=== PATIENT | female | born 1965 | race Caucasian/White ===

== ENCOUNTER 2016-06-13 17:08 | Inpatient (IN) | payer MEDICARE, MEDICAID ==
[~2016-06-13] VITALS: Ht 165.1 cm; Wt 81.3 kg
[~2016-06-13 17:08] MED LIST: CRAN1CAP5 PO; LISI-571 PO; MULT1CAP33 PO; NITR100C PO; OXYB15TA PO; UBID1CAP52 PO
[2016-06-13 18:16] LABS: BASOPHILS % (AUTO) 0.2 % (0-3); EOSINOPHILS % (AUTO) 0 % (0-5); Mean Corpuscular Hemoglobin 29.3 pg (27.0-35.0); NEUTROPHILS % (AUTO) 85.9 % (40-74); Platelet Count 315 bil/L (150-400)
--- NOTE | 2016-06-13 18:16 | ED.REPORT ---
HPI-General Illness Date of Service Jun 13, 2016 ED Provider: Dr. Juanito Mendez MD A 51 year old female with a history of history of MS, neurogenic bladder, left renal atrophy and recurrent UTI's presents to the ED via EMS complaining of a subjective fever that began yesterday. Patient's most recent prior admission was in 09/2015 for acute kidney injury obstructive uropathy, UTI and urosepsis. Today, family reports decreased urination, decreased appetite, weakness, confusion, chills and a change in mental status. She denies one sided weakness , facial droop, abdominal pain, cough , SOB, chest pain, headache, neck immobility or stiffeners. Family states that the color of the patient's urine often fluctuates. Patient's Velez catheter is always present. She reports similar symptoms to her previous admission. Family denies steroid use for MS. Nursing Notes Stated Complaint: FEVER Chief Complaint: General Complaint Nursing Notes Reviewed: Yes Allergies: Coded Allergies: Sulfa (Sulfonamide Antibiotics) (Verified Allergy, Unknown, 06/13/16) Scheduled Cranberry Extract/Vit C (Azo Cranberry Softgel) 1 Each Capsule 1 EACH PO DAILY Dimethyl Fumarate (Tecfidera) 240 Mg Capsule 240 MG PO BID Lisinopril (Lisinopril) 2.5 Mg Tablet 2.5 MG PO DAILY Multivitamin (Multivitamins) 1 Each Capsule 1 EACH PO DAILY Nystatin (Nystatin) 60 Applic/15 Gm Cream 1 APPLIC TOP BID Ubidecarenone/Vit E Acetate (Co Q-10 100 mg Softgel) 1 Each Capsule 1 EACH PO DAILY Scheduled PRN Acetaminophen (Acetaminophen) 325 Mg Capsule 650 MG PO q4 hours PRN PRN For Pain General Time Seen by MD: 18:12 Chief Complaint Fever Hx Obtained From: Patient Arrived By: Ambulance Sudden in Onset?: No Onset Occurred: Yesterday Symptom Duration: Since onset Associated with: Reports: Fever (subjective ), Weakness, Denies: Abdominal pain, Cough, Headache Pertinent Negative: Pt denies other symptoms Recent Healthcare: No recent hospitalization, Recent doctor visit Past Medical History Past Medical History Multiple sclerosis Headaches Recurrent UTI's Neurogenic bladder Left renal atrophy Reports: Urinary tract infection Past Surgical History Left ankle fracture Bladder surgery at age 3, uncertain nature Smoking History Never Smoker Social History Alcohol Use: Denies alcohol use Ambulatory Status Walker Review of Systems Decreased appetite Full Review of Systems Constitutional: Reports: Chills, Fever Respiratory: Denies: Non-productive cough, Shortness of breath Cardiovascular: Denies: Chest pain GI: Denies: Abdominal pain, Nausea, Vomiting Female: Reports: Urination decreased, Denies: Dysuria Musculoskeletal: Denies: Neck pain Neurologic: Denies: Change LOC, Focal weakness, Headache, Weakness Psychiatric: Reports: Change mental status, Confusion Complete sys rev & neg: except as marked. Physical Exam Vital Signs Vital Signs Date Time Temp Pulse Resp B/P Pulse Ox O2 Delivery O2 Flow Rate FiO2 06/13/16 18:17 37.9 116 24 107/58 95 Room Air Initial VS: Reviewed Head / Eyes: Atraumatic, Normocephalic, PERRL Neck: Supple, Non-tender, Full range of motion Extremities: Vascular intact, Neuro intact, No swelling, No tenderness Psychiatric: Mood/affect normal, Behavior normal, Normal thought content General/Constitutional: Awake, Alert ENT: Atraumatic, Airway patent Mouth: Positive: Mucous membranes dry (Dry lips ) Respiratory / Chest: Atraumatic, No respiratory distress Cardiovascular: Heart rate NL, Regular rhythm, Heart sounds NL, No gallop, No murmurs, No rubs, Peripheral circulation NL (Strong distal pulses ) CARDIO: No calf swelling or tenderness Abdomen: Atraumatic, Soft, Non-tender, No distention Skin: Atraumatic, Color NL, Warm, Dry SKIN: No evidence of soft tissue infection No cellulitis or abscess Neurologic: Oriented X3, CN II - XII intact NERUO: Decreased strength (baseline in setting of MS) Resolution Analyst stregnth equal in extremities Interpretation & Diagnostics Lab Results Interpretation Result Diagram: 06/13/164 06/13/161803 Test 06/13/16 18:04 White Blood Count 25.0th/mm3 (3.8-10.1) Red Blood Count 4.58mil/mm3 (3.90-5.20) Hemoglobin 13.4g/dL (12.0-15.6) Hematocrit 40.3% (35.0-46.0) Mean Corpuscular Volume 88.0fL (81-100) Mean Corpuscular Hemoglobin 29.3pg (27.0-35.0) Mean Corpuscular Hemoglobin Concent 33.3% (32.0-37.0) Red Cell Distribution Width 14.2% (12.3-15.4) Platelet Count 315bil/L (150-400) Neutrophils (%) (Auto) 85.9% (40-74) Lymphocytes (%) (Auto) 1.4% (14-46) Monocytes (%) (Auto) 12.0% (4-12) Eosinophils (%) (Auto) 0% (0-5) Basophils (%) (Auto) 0.2% (0-3) Sodium Level 138mEq/L (134-144) Potassium Level 4.7mEq/L (3.5-5.2) Chloride Level 102mEq/L (97-108) Carbon Dioxide Level 22mmol/L (18-29) Blood Urea Nitrogen 28mg/dL (6-24) Creatinine 1.73mg/dL (0.57-1.00) Estimat Glomerular Filtration Rate 44mL/min (>59) Glucose Level 133mg/dL (60-99) Calcium Level 9.7mg/dL (8.5-10.1) Phosphorus Level 2.3mg/dL (2.5-4.9) Magnesium Level 1.8mg/dL (1.6-2.6) Total Bilirubin 1.1mg/dL (0.0-1.2) Aspartate Amino Transf (AST/SGOT) 33U/L (0-50) Alanine Aminotransferase (ALT/SGPT) 38U/L (0-32) Alkaline Phosphatase 118U/L (25-150) Troponin T < 0.010ug/L (0.0-0.011) Total Protein 6.7g/dL (6.4-8.4) Albumin 3.1g/dL (3.4-5.0) Procalcitonin 1.07ng/mL (0.00-0.08) Hold Godwin Top Tube Received (Received) ECG Interpretation ECG Interpretation: Sinus tachycardia Rate 118 bpm Normal axis Normal intervals No acute ST changes No T wave abnormalities no tachy 1800 Time: 20:45 Interpreted by: ED physician X-Ray Chest Interpretation Chest Xray Interpretation: IMPRESSION: 1. Low lung volumes with probable vascular crowding but no definite acute cardiopulmonary disease. Dictated by: Anibal Valle M.D. on 06/13/2016 at 18:59 Interpretation / Wet Read by: Interpret - Radiologist Re-Eval/Medical Decision Med Decision/Clinical Course In summary, the patient is a 51 year old female with a history of history of MS , neurogenic bladder, left renal atrophy and recurrent UTI's/urosepsis who presents to the ED via EMS complaining of a subjective fever that began yesterday, in addition she has had chills/rigors generalized weakness/fatigue and confusion. He is accompanied by family who state that this is similar to her previous presentation prior to diagnosis of urosepsis. Upon arrival she was tachycardic with a heart rate of 120. IV access is obtained, laboratory studies were sent and she was treated with a 30 mL/kg fluid bolus. Laboratory studies notable as below: Leukocytosis 25 (new) Hct 40.3 significantly elevated from prior baseline - 25 BUN 28 - Acute elevated baseline within normal limits Creatinine 1.73 - Improved from baseline K within normal limits No. Electrolyte abnormalities Lactate 1.6 Negative troponin Chart review as below: Most recent urine culture (10/13/15) - no growth 2 sets of cultures (10/16/15) - No growth 1 blood culture (10/13/15) micrococcus - suspect contamination While the patient's previous admission was for urosepsis interestingly no cultures seemed to grow any convincing single organism. That being said, she is tachycardic today with foul-smelling urine and a leukocytosis of 25 (not recently started on any steroids) in association with generalized weakness, altered mental status and foul-smelling urine. Velez catheter was placed and urine has been sent for culture. It will be difficult to interpret given that she has a chronic indwelling Velez. At this time presentation is concerning for sepsis and she meets SIRS criteria. Therefore I have initiated broad- spectrum antibiotics with vancomycin and Zosyn and 2 sets of blood cultures have been obtained. Patient was admitted to the hospitalist service for further workup and management. She was transferred in stable condition. Time of Eval: 19:24 Patient Status: Condition improved Re-Evaluation/Progress Note: Family is informed of patient's results and the current plan to admit. Consultation : Referral / Consult Name: Maykel Irizarry MD Consulted With: Hospitalist Call Returned at: 20:09 Food Service Kitchen Supervisor: Will see patient, Agrees with eval, Agrees with plan, Accepts admit Counseled Regarding: Diagnosis, Lab results, Need for admission Discharge & Departure Primary Impression: Sepsis Sepsis type: sepsis due to unspecified organism Qualified Code: A41.9 - Sepsis, unspecified organism Additional Impressions: Urinary tract infection Urinary tract infection type: site unspecified Hematuria presence: without hematuria Qualified Code: N39.0 - Urinary tract infection, site not specified Multiple sclerosis Neurogenic bladder Chronic indwelling Velez catheter Leukocytosis Leukocytosis type: unspecified Qualified Code: D72.829 - Elevated white blood cell count, unspecified Tachycardia Altered mental status Altered mental status type: unspecified Qualified Code: R41.82 - Altered mental status, unspecified Chronic kidney disease Chronic kidney disease stage: unspecified stage Qualified Code: N18.9 - Chronic kidney disease, unspecified SIRS (systemic inflammatory response syndrome) Disposition: ADMITTED TO HOSPITAL Discharge Condition All VS Reviewed: Yes Condition: Stable Referrals: Laurel Benitez PA-C (PCP) Crit Care Except Billable Proc Time Spent: 105-134 minutes Services Performed: Patient management by me, Time spent at bedside, Reviewing test results, Reviewing imaging, Discussing patient care, Documentation in record, Time with fam/surrogate Scribe Attestation Portions of this note were transcribed by Daniella Solo. I, Dr. Mendez personally performed the history, physical exam and medical decision-making; I reviewed and confirmed the accuracy of the information in the transcribed note. Signed by: Martita Carias, 06/13/162049. copies to: Laurel Benitez PA-C, Beck O MD Jun 13, 2016 18:16 DANIELLA SOLO Jun 13, 2016 19:15
[2016-06-13 18:17] VITALS: BP 107/58; PULSE 116; RESP 24; O2SAT 95
[2016-06-13] MEDS ORDERED: 0.9% Sodium Chloride 1,000 ML IV SCH ×2 (18:20→21:08)
[2016-06-13 18:49] LABS: TROPONIN T < 0.010 ug/L (0.0-0.011)
[2016-06-13 18:51] LABS: Magnesium 1.8 mg/dL (1.6-2.6)
--- NOTE | 2016-06-13 19:06 | DRSVH ---
PROCEDURE: X-RAY CHEST ONE VIEW, PORTABLE ([id number]) INDICATIONS: tachycardia TECHNIQUE: One view of the chest was acquired. COMPARISON: Located Within [facility], CR, XR CHEST 1VW (PORTABLE), 10/13/2015, 16:58. FINDINGS: Surgical changes and devices: None. Lungs and pleura: No pleural effusions or pneumothorax. There are low lung volumes with vascular pr ominence which may reflect vascular crowding. No definite focal consolidation. Mediastinum: Mediastinal contours appear mildly prominent likely due to technique and low volumes. Heart size is normal. Bones and chest wall: No suspicious bony lesions. Overlying soft tissues appear unremarkable. IMPRESSION: 1. Low lung volumes with probable vascular crowding but no definite acute cardiopulmonary disease. Dictated by: Anibal Valle M.D. on 06/13/2016 at 18:59 Approved by: Anibal Valle M.D. on 06/13/2016 at 19:00
[2016-06-13] MEDS ORDERED: Alum-Mag Hydrox-Simeth 30 mL Suspension PO PRN ×2 (19:25→21:10)
[2016-06-13] MEDS ORDERED: Piperacillin-Tazo 3.375 Gm Inj 3.375 GM in Dextrose 5% Minibag Plus 50 ML IV ONE (19:25)
[2016-06-13] MEDS ORDERED: Ondansetron 2 mg/mL 2 mL Inj IVPUSH PRN ×2 (19:25→21:10)
[2016-06-13] MEDS ORDERED: Vancomycin Dose per Pharmacist XX ONE ×2 (19:25→21:10)
[2016-06-13 20:00] VITALS: BP 119/67; PULSE 127; RESP 25; O2SAT 94
[2016-06-13] MEDS ORDERED: Vancomycin Inj 1,500 MG in 0.9% Sodium Chloride 500 ML IV ONE (20:00)
[2016-06-13 20:48] VITALS: PULSE 126
[2016-06-13] MEDS ORDERED: MYCC TOP (20:56)
[2016-06-13] MEDS ORDERED: ACET325C PO (20:56)
[2016-06-13] MEDS ORDERED: LISI2.5T PO (20:56)
[2016-06-13] MEDS ORDERED: DIME240C2 PO (20:56)
[2016-06-13 21:09] VITALS: BP 120/69; PULSE 125; RESP 18; O2SAT 96
[2016-06-13] MEDS ORDERED: Polyethylene Glycol (PEG) 17 Gm Powder PO PRN (21:10)
[2016-06-13] MEDS ORDERED: Famotidine Inj 20 MG in IV Premix 1 EACH IV SCH (21:30)
--- NOTE | 2016-06-13 21:30 | NUR ---
Admission Pt is able to answer questions. Oriented x 3. Denies pain. reports that the pt came to the hospital due to lethargy and fever. Pt is currently interactive with health care givers and is afebrile. Replaced mccullough catheter that was leaking in large volumes around the 16gauge mccullough that was placed in the ED Very milky urin flowed from the catheter once it was replaced. Pt tolerated procedure. Able to use call light. Oriented to bed and nurse call light. Will cont to monitor
--- NOTE | 2016-06-13 21:31 | PCM.HPMED ---
Subjective Date of Service Jun 13, 2016 Primary Provider: Admitting Physician: Maykel Irizarry MD Primary Care Physician: Laurel Benitez PA-C Attending Physician: Maykel Irizarry MD Chief Complaint: Fever History of Present Illness: Patient is a 51 y.o. F with past medica history of MS, neurogenic bladder with indwelling catheter, left renal atrophy, recurrent UTI with multiple drug resistance. Patient last admitted to hospital September 2015 for SAMANTHA, obstructive uropathy, urosepsis requiring CCU admit, cultures positive for Citrobacter and Enterobacter (resistance to nitrofurantoin) both resistant to Augmentin, cefazolin, cefuroxime. Patient presented to ED this evening with 24 hours history of worsening subjective fever, weakness, chills, decreased appetite. Family reports patient has been more confused, decreased urination, change in urine color, stated that symptoms are similar to prior admission although they feel like they brought patient into the hospital earlier this time before symptoms became worse. Family denies numbness, facial droop, abdominal pain, constipation, pus or blood in urine, use of systemic steroids for MS. Patient denies headache, syncope, chest pain, chest pressure, shortness of breath, discomfort with Velez insertion, neck stiffness, change in vision. In Ed patient given fluids, once dose of Vancomycin dosing per pharmacy, [place]. Review of Systems: Comprehensive review of systems conducted and was negative except for the pertinent positives listed above. Allergies Coded Allergies: Sulfa (Sulfonamide Antibiotics) (Verified Allergy, Unknown, 06/13/16) Home Medications Cranberry Extract/Vit C (Azo Cranberry Softgel) 1 Each Capsule 1 EACH PO DAILY Lisinopril (Lisinopril) 5 Mg Tablet 2.5 MG PO DAILY Multivitamin (Multivitamins) 1 Each Capsule 1 EACH PO DAILY Ubidecarenone/Vit E Acetate (Co Q-10 100 mg Softgel) 1 Each Capsule 1 EACH PO DAILY Tecfidera (Dimethyl fumerate 240 mg cap) 1 Capsule PO DAILY PMH Multiple sclerosis Headaches Recurrent UTI's Neurogenic bladder Left renal atrophy Urosepsis Surgical History Left ankle fracture Bladder surgery at age 3, uncertain nature Family History HTN no family history of cardiac disease, pulmonary disease, Social History Hx Alcohol Use: No Hx Substance Use: No Hx Tobacco Use: No Smoking Status: Never Smoker Exam Vital Signs Vital Sign - Last Date Time Temp Pulse Resp B/P Pulse Ox O2 Delivery O2 Flow Rate FiO2 06/13/16 21:09 36.8 125 18 120/69 96 Room Air Exam General: Alert, Oriented to person, place, limited to time unable to identify year, Cooperative, No Acute Distress Head: Normocephalic, atraumatic. External ears normal. Eyes: PERRLA, EOMI. Anicteric sclerae. Mouth: Mouth Normal, Mucous Membranes Dry/[place] Neck: Neck supple with full range of motion. No JVD, skin tenting present Chest & Lungs: Clear to auscultation bilaterally with no crackles, wheezes, or rhonchi. Decreased air movement at bases Cardiovascular: Tachycardic/normal sinus rhythm, Normal S1, Normal S2, No Murmurs/Rubs/Gallops Abdomen: Non-tender, Non-distended, No masses, Normoactive bowel tones, Soft Musculoskeletal: Limited Range of Motion at base line, patient able to hold arms and legs against gravity weakness when force applied, weakness of trunk patient needs support to sit up in bed, No CVA tenderness Extremities: No cyanosis/clubbing/edema bilaterally Neurological: Grossly Neurologically Intact, slurred speech at baseline, Strength Normal 3/4 ext, Ambulates with walker at home, Sensation Intact, Cerebellar Function abnormal Finger-Nose but at baseline, appropriately follows commands Psych: Normal mood and affect Lab and Diagnostics Result Diagram: 06/13/16 1804 06/13/16 180 X-Rays, CTs and MRIs CHEST X-RAY IMPRESSION: 1. Low lung volumes with probable vascular crowding but no definite acute cardiopulmonary disease. Dictated by: Anibal Valle M.D. on 06/13/2016 at 18:59 Approved by: Anibal Valle M.D. on 06/13/2016 at 19:00 12-lead ECG Rate 118 Sinus tachycardia normal axis no signs of ST changes Assessment & Plan Patient is a 51 y.o. F with past medica history of MS, neurogenic bladder with indwelling catheter, left renal atrophy, recurrent UTI with multiple drug resistance. Patient last admitted to hospital September 2015 for SAMANTHA, obstructive uropathy, urosepsis requiring CCU admit, urine cultures positive for Citrobacter and Enterobacter (resistance to nitrofurantoin) both resistant to Augmentin, cefazolin, cefuroxime. Patient admitted to hospital for treatment of sepsis, likely source of infection urinary from indwelling catheter. 1. Sepsis, acute - Patient tachycardic on admission, RR 24, BP 107/58 - Likely source of infection urinary tract from indwelling catheter - Continue IVF NS @ 125 mls/hr - Continue Zosyn renal dosing per pharmacy for 7 days - Continue Vancomycin dosing per pharmacy for 7 days - Continue to monitor renal function estimated creatine clearance at admission > 40 - Repeat CBC and CMP - UA with culture ordered - Blood cultures ordered, pending - Procalcitonin ordered, pending - Trend Lactic Acid Q2 hrs until normal. - Continue Tele - Velez cath in place - Continue to monitor I/O - Consider ID consult should patient's condition worsen and pending results of urine and blood cultures 2.Suspected UTI - from indwelling catheter - continue treatment as above #1 3.Acute on chronic kidney disease - Cr at admission 1.73 improved from baseline - Continue to monitor - Repeat BMP in AM - Consider nephrology consult if patient renal function worsens below baseline 4.Dehydration, acute - Continue fluid resuscitation as above #1 4. Hypotension, mild, acute - Continue fluid resuscitation as above #1 - Improving with fluids Chronic Conditions 5. Obstructive uropathy, chronic - Continue treatment as above #1 6. MS - Patient on treatment with Tecfidera 240 mg daily, Hold medication until infection resolved - This medication has been shown to leukocytopenia and decrease body's ability to properly mount immunologic response to fight off severe infection - Consider Neurology consult 7. HTN - Hold Home meds until BP improves CODE STATUS: LIMITED INTERVENTIONS NO INTUBATION, NO MECHANICAL VENTILATION DVT prophylaxis: Sub Q heparin Patient is admitted under inpatient status with expected length of stay greater than 2 midnights due to severity of presenting symptoms, risk of adverse event, and complexity of treatment plan. Pain Evaluation: Adequate Pain Control Resuscitation Status: Limited Interventions (No intubation, No mechanical ventilation) Attending Statement The patient was seen and examined together with Dr. Doe on 06/13 and I agree with the history, exam and plan as outlined in the note above. TERESO DOE DO Jun 13, 2016 21:31 Maykel Irizarry MD Jun 14, 2016 00:42
--- NOTE | 2016-06-13 21:37 | PCM.CONPHA ---
Subjective Date of Service: Jun 13, 2016 Reason for Pharmacy Consult: Vancomycin Dosing Objective Vital Signs Date Time Temp Pulse Resp B/P Pulse Ox O2 Delivery O2 Flow Rate FiO2 06/13/16 21:09 36.8 125 18 120/69 96 Room Air 06/13/16 20:48 126 06/13/16 20:00 36.7 127 25 119/67 94 Room Air 06/13/16 18:17 37.9 116 24 107/58 95 Room Air Weight (Kilograms): 82.800 Height (Feet): 5 Height (Inches): 5.00 Test 06/13/16 18:04 White Blood Count 25.0th/mm3 (3.8-10.1) Red Blood Count 4.58mil/mm3 (3.90-5.20) Hemoglobin 13.4g/dL (12.0-15.6) Hematocrit 40.3% (35.0-46.0) Mean Corpuscular Volume 88.0fL (81-100) Mean Corpuscular Hemoglobin 29.3pg (27.0-35.0) Mean Corpuscular Hemoglobin Concent 33.3% (32.0-37.0) Red Cell Distribution Width 14.2% (12.3-15.4) Platelet Count 315bil/L (150-400) Neutrophils (%) (Auto) 85.9% (40-74) Lymphocytes (%) (Auto) 1.4% (14-46) Monocytes (%) (Auto) 12.0% (4-12) Eosinophils (%) (Auto) 0% (0-5) Basophils (%) (Auto) 0.2% (0-3) Sodium Level 138mEq/L (134-144) Potassium Level 4.7mEq/L (3.5-5.2) Chloride Level 102mEq/L (97-108) Carbon Dioxide Level 22mmol/L (18-29) Blood Urea Nitrogen 28mg/dL (6-24) Creatinine 1.73mg/dL (0.57-1.00) Estimat Glomerular Filtration Rate 44mL/min (>59) Glucose Level 133mg/dL (60-99) Lactic Acid Level 1.6mmol/L (0.4-2.0) Calcium Level 9.7mg/dL (8.5-10.1) Magnesium Level 1.8mg/dL (1.6-2.6) Total Bilirubin 1.1mg/dL (0.0-1.2) Aspartate Amino Transf (AST/SGOT) 33U/L (0-50) Alanine Aminotransferase (ALT/SGPT) 38U/L (0-32) Alkaline Phosphatase 118U/L (25-150) Troponin T < 0.010ug/L (0.0-0.011) Total Protein 6.7g/dL (6.4-8.4) Albumin 3.1g/dL (3.4-5.0) Hold Godwin Top Tube Received (Received) Assessment/Plan Assessment/Plan Vanco per Rx Indication: Urosepsis ? WBC 25 Febrile Vd 53.6; LD 1500mg then 1000mg q24h Trough Goal 15 -20; eTrough @ SS is 16.6 Will draw early trough, before 3rd dose, due to renal (Hx CKD) Adebayo Campa PharmD Jun 13, 2016 21:37
[2016-06-13 21:51] LABS: Phosphorus 2.3 mg/dL (2.5-4.9)
[2016-06-13] MEDS ORDERED: oxyCODONE-Acetamin 5-325 mg Tablet PO PRN (22:05)
[2016-06-13] MEDS: Heparin 5,000 Unit/mL Inj SUBQ SCH (22:06)
[2016-06-13] MEDS: 0.9% Sodium Chloride 1,000 ML IV SCH (22:06)
[2016-06-13 22:27] LABS: INR 1.06 ratio
[2016-06-13 23:55] VITALS: BP 113/61; PULSE 124; RESP 16; O2SAT 95
[2016-06-14] VITALS (7 sets, daily range): BP systolic 116–124; BP diastolic 67–78; PULSE 96–124; RESP 16–20; O2SAT 94–97
[2016-06-14 00:12] LABS: BASOPHILS % (AUTO) 0.1 % (0-3); EOSINOPHILS % (AUTO) 0.1 % (0-5); MONOCYTES % (AUTO) 11.7 % (4-12); Mean Corpuscular Hemoglobin 28.9 pg (27.0-35.0); Mean Corpuscular Volume 88.9 fL (81-100); NEUTROPHILS % (AUTO) 85.4 % (40-74); Platelet Count 247 bil/L (150-400)
[2016-06-14 00:26] LABS: APPEARANCE,URINE CLOUDY (CLEAR,HAZY); COLOR,URINE STRAW (YELLOW); OCCULT BLOOD,URINE LARGE (NEGATIVE); PH,URINE 7.5 (5.0-8.0); UROBILINOGEN,URINE NORMAL (NORMAL)
[2016-06-14] MEDS: Sodium Chloride LOK Flush 10 mL Syringe IVFLUSH SCH ×3 (00:30→16:30)
[2016-06-14 02:32] LABS: BASOPHILS % (AUTO) 0.2 % (0-3); EOSINOPHILS % (AUTO) 0.1 % (0-5); MONOCYTES % (AUTO) 10.2 % (4-12); Mean Corpuscular Hemoglobin 29.1 pg (27.0-35.0); Mean Corpuscular Volume 89.1 fL (81-100); NEUTROPHILS % (AUTO) 85.7 % (40-74); Platelet Count 241 bil/L (150-400)
[2016-06-14] MEDS: Piperacillin-Tazo 3.375 Gm Inj 3.375 GM in Dextrose 5% Minibag Plus 50 ML IV SCH ×3 (04:43→20:52)
[2016-06-14] MEDS: 0.9% Sodium Chloride 1,000 ML IV SCH ×3 (04:47→20:58)
[2016-06-14] MEDS: Heparin 5,000 Unit/mL Inj SUBQ SCH ×3 (06:06→21:00)
[2016-06-14] MEDS ORDERED: Vancomycin Dose per Pharmacist XX SCH (08:30)
--- NOTE | 2016-06-14 14:55 | NUR ---
Case Management Note: received VM from Megan Guzman at [facility],- pt lives at home with spouse, has a caregiver with 112 hours/mo. Pt has hx with [facility] out of [place] and was happy with their services. Faxed H&P to Megan Guzman. Advised SENSITOMETRIST.
--- NOTE | 2016-06-14 16:25 | NUR ---
Evaluation completed. Please go to "Notes" then click on "Assessments and Notes" (bottom left corner of screen). Then select appropriate discipline tab on top of screen.
--- NOTE | 2016-06-14 16:27 | NUR ---
Social Work Note: Initial Assessment Data& Assessment: EMR reviewed. SW met with pt and pt at bedside to discuss discharge planning, SW role explained. Sho Veliz is a 51 year old female admitted on 06/13/2016 for sepsis. Pt has [employer] and [employer] Supplement insurance coverage. Pt sees Laurel LE for primary care. Pt lives at home in [place] with her spouse and uses a wheelchair at baseline. Pt has Chronic MS that has limited her ability to complete ADL's independently. Pt does not drive. Pt has 112 [facility] caregiving hours monthly. [facility] CM is Megan Logan (clinicals have been faxed). Pt has had a hx with [facility] in [place]. Pt has been to [facility] in the last month prior to returning home. Pt does not have LTC insurance or VA benefits. Pt and pt have been provided with DPOA/Advance Directive paperwork and plan to review those documents during this hospitalization. Pt and pt deny any other needs at this time. SW to continue to follow if any needs arise. Plan: Anticipated discharge home when medically ready with resume [facility] caregiving. SW to continue to follow and r/o home health vs. SNF. Pt and pt deny any other needs at this time. SW to continue to follow if any needs arise. YOVANI Diaz Addendum: 06/14/16 at 1632 by MARK ANTHONY GALLAGHER Amended: Links added.
--- NOTE | 2016-06-14 18:30 | NUR ---
Sepsis- Patient has had low grade temp. throughout this shift. No chills. Tele-sinus tach. 100-120's. BP stable. Velez catheter draining cloudy urine. Patient alert and oriented. Denies complaints of discomfort. Turning and repositioning patient about every 2 hrs. Family at bedside and very supportive to patient.
--- NOTE | 2016-06-14 20:49 | PCM.PNMED ---
Subjective Date of Service Jun 14, 2016 Subjective Overnight: No acute events since admission Today: Patient states that she feels fine. No fever or chills overnight. Patient has an indwelling Velez catheter for MS with neurogenic bladder. Patient states she is able to eat without issue but noticed some difficulty with swallowing thin liquids. The patient is unable to make it to the bathroom on time without assistance from a caregiver or family member. Exam Vital Signs Vital Sign - Last Date Time Temp Pulse Resp B/P Pulse Ox O2 Delivery O2 Flow Rate FiO2 06/14/16 05:10 36.7 124 16 116/67 96 Room Air Intake and Output 06/13/16 06/13/16 06/14/16 Cumulative From/Thru 15:00 23:00 07:00 06/13/16 17:09 - 06/14/16 06:35 Intake Total 3000 ml 1586 ml 4586 ml Output Total 2150 ml 2150 ml Balance 3000 ml -564 ml 2436 ml Intake Oral 250 ml 250 ml IV Total 3000 ml 1336 ml 4336 ml Output Urine Total 2150 ml 2150 ml # Voids 1 1 # Bowel Movements 0 0 Exam General: Alert, Oriented to person, place, limited to time unable to identify year but knows Haim Subramanian is the president, Cooperative, No Acute Distress Head: Normocephalic, atraumatic. External ears normal. Eyes: PERRLA, EOMI. Anicteric sclerae. Mouth: Mouth Normal, Mucous Membranes moist Neck: Neck supple with full range of motion. No JVD, skin tenting present Chest & Lungs: Clear to auscultation bilaterally with no crackles, wheezes, or rhonchi. Decreased air movement at bases Cardiovascular: Tachycardic with regular rhythm, Normal S1, Normal S2, No Murmurs/Rubs/Gallops Abdomen: Non-tender, Non-distended, No masses, Normoactive bowel tones, Soft Musculoskeletal: Limited Range of Motion at base line, patient able to move arms and legs but generalized weakness most notably in the lower extremities, No CVA tenderness Extremities: No cyanosis/clubbing/edema bilaterally Neurological: Grossly Neurologically Intact, slurred speech at baseline, Ambulates with walker at home, appropriately follows commands Psych: Normal mood and elevated but not labile affect Lab and Diagnostics Result Diagram: 3/22/17 0220 3/22/17 0220 X-Rays, CTs and MRIs CHEST X-RAY IMPRESSION: 1. Low lung volumes with probable vascular crowding but no definite acute cardiopulmonary disease. Dictated by: Anibal Valle M.D. on 06/13/2016 at 18:59 Approved by: Anibal Valle M.D. on 06/13/2016 at 19:00 12-lead ECG Rate 118 Sinus tachycardia normal axis no signs of ST changes Assessment & Plan Patient is a 51 y.o. F with past medica history of MS, neurogenic bladder with indwelling catheter, left renal atrophy, recurrent UTI with multiple drug resistance. Patient admitted to hospital for treatment of sepsis, likely source of infection urinary from indwelling catheter. Hospital Day 1 1. Sepsis, acute, present on admission - Surgical criteria met with Patient tachycardic and tachypneic on admission HR 116, RR 24, leukocytosis 25,000 - Likely source of infection urinary tract from indwelling catheter secondary to neurogenic bladder due to multiple sclerosis - Patient last admitted to hospital September 2015 for SAMANTHA, obstructive uropathy neurogenic bladder and urinary tract infection requiring CCU admit, urine cultures positive for Citrobacter and Enterobacter (resistance to nitrofurantoin ) both resistant to Augmentin, cefazolin, cefuroxime. - Continue IVF NS @ 125 mls/hr - Continue Zosyn renal dosing per pharmacy for 7 days - discontinue Vancomycin given UTI with prior culture results noted above - Continue to monitor renal function estimated creatine clearance at admission > 40 - UA with culture ordered and pending - Blood cultures ordered, pending - Procalcitonin 1.07 at admission and trended down - Lactic acid 1.6 at admission and trended - Continue Tele - Velez cath in place replaced by EGD - Continue to monitor I/O - Consider ID consult should patient's condition worsen and pending results of urine and blood cultures 2.urinary tract infection, acute, present on admission - from indwelling catheter which was replaced in the ED - continue treatment as above #1 3.Acute on chronic kidney disease, present on admission - Cr at admission 1.73 improved from baseline - Continue to monitor - Repeat BMP in AM - Consider nephrology consult if patient renal function worsens below baseline 4.Dehydration, acute, present on admission - Continue fluid resuscitation as above #1 5. Hypotension, mild, acute, present on admission - Continue fluid resuscitation as above #1 - Improving with fluids 6. Neurogenic bladder, chronic, present on admission - Likely secondary to multiple sclerosis - Continue treatment as above #1 7. Multiple sclerosis, present on admission, chronic - Patient on treatment with Tecfidera 240 mg daily, Hold medication one more day monitoring infection - This medication has been shown to leukocytopenia and decrease body's ability to properly mount immunologic response to fight off severe infection - Consider Neurology consult 8. Hypertension, present on admission, chronic - Hold Home meds until BP improves CODE STATUS: LIMITED INTERVENTIONS NO INTUBATION, NO MECHANICAL VENTILATION DVT prophylaxis: Sub Q heparin Disposition: Patient likely to remain hospitalized for one to 2 more days until culture results come back given prior history of resistant organisms to guarantee monitoring and proper antibiotic selection. Patient has home health nurse already. No further barriers expected to discharge Pain Evaluation: Adequate Pain Control GI Prophylaxis: H2 meet VTE Prophylaxis: Sub-Q Heparin (Unfractionated) Resuscitation Status: Limited Interventions (No intubation, No mechanical ventilation) Limited Interventions: Cardioversion/Defibrillation, BiPAP, Medications and IV Fluid Attending Statement The patient was seen and examined together with Dr. Golden on 06/14/2016 and I agree with the history, exam and plan as outlined in the note above. . Sander Golden DO Jun 14, 2016 07:58 Jamie Sierra MD Jun 16, 2016 19:31
--- NOTE | 2016-06-14 21:25 | NUR ---
Activity Pt had visitors most of the evening. She states, "I'm worn out." Room darkened. Call light within reach. Heels floated. Frequent rounding. Care ongoing
[2016-06-14] MEDS ORDERED: Vancomycin Inj 1,000 MG in IV Premix 1 EACH IV SCH (22:00)
[2016-06-15] VITALS (7 sets, daily range): BP systolic 120–137; BP diastolic 74–94; PULSE 88–108; RESP 18–22; O2SAT 95–97
[2016-06-15] MEDS: Sodium Chloride LOK Flush 10 mL Syringe IVFLUSH SCH ×3 (00:18→15:33)
[2016-06-15 02:44] LABS: BASOPHILS % (AUTO) 0.6 % (0-3); MONOCYTES % (AUTO) 12.4 % (4-12); Mean Corpuscular Volume 90.2 fL (81-100); NEUTROPHILS % (AUTO) 75.8 % (40-74); Platelet Count 196 bil/L (150-400)
[2016-06-15] MEDS: 0.9% Sodium Chloride 1,000 ML IV SCH ×3 (04:19→21:15)
[2016-06-15] MEDS: Piperacillin-Tazo 3.375 Gm Inj 3.375 GM in Dextrose 5% Minibag Plus 50 ML IV SCH ×3 (04:20→21:13)
[2016-06-15] MEDS: Heparin 5,000 Unit/mL Inj SUBQ SCH ×3 (05:33→21:21)
--- NOTE | 2016-06-15 05:40 | NUR ---
Skin Pt turned every two hours. Tolerated. Her right arm is slightly swollen. Elevated on pillows. Heels floated. Will cont to monitor
--- NOTE | 2016-06-15 18:46 | PCM.PNMED ---
Subjective Date of Service Jun 15, 2016 Subjective overnight: No acute events noted overnight Today: Patient states she is feeling good no reports of fever or chills. Her brought in her multiple sclerosis drugs which will be placed in a locked drawer. The would like for the patient to be up in chair. Exam Vital Signs Vital Sign - Last Date Time Temp Pulse Resp B/P Pulse Ox O2 Delivery O2 Flow Rate FiO2 06/15/16 04:21 37.8 101 20 120/74 95 Room Air Intake and Output 06/14/16 06/14/16 06/15/16 Cumulative From/Thru 15:00 23:00 07:00 06/13/16 17:09 - 06/15/16 04:50 Intake Total 560 ml 1463 ml 6609 ml Output Total 2500 ml 1400 ml 6050 ml Balance -1940 ml 63 ml 559 ml Intake Oral 560 ml 200 ml 1010 ml IV Total 1263 ml 5599 ml Output Urine Total 2500 ml 1400 ml 6050 ml # Voids 1 # Bowel Movements 0 0 Exam General: Alert, Oriented and Cooperative, No Acute Distress Head: Normocephalic, atraumatic. External ears normal. Mild hirsutism noted around chin Eyes: PERRLA, EOMI. Anicteric sclerae. Mouth: Mouth Normal, Mucous Membranes moist Neck: Neck supple with full range of motion. No JVD, skin tenting present Chest & Lungs: Clear to auscultation bilaterally with no crackles, wheezes, or rhonchi. Decreased air movement at bases Cardiovascular: Tachycardic with regular rhythm, Normal S1, Normal S2, No Murmurs/Rubs/Gallops Abdomen: Non-tender, Non-distended, No masses, Normoactive bowel tones, Soft Musculoskeletal: Limited Range of Motion at base line, patient able to move arms and legs but generalized weakness most notably in the lower extremities, No CVA tenderness Extremities: No cyanosis/clubbing/edema bilaterally Neurological: Grossly Neurologically Intact, slurred speech at baseline, appropriately follows commands Psych: Normal mood and elevated but not labile affect Lab and Diagnostics Result Diagram: 06/15/1622406/15/16224 X-Rays, CTs and MRIs CHEST X-RAY IMPRESSION: 1. Low lung volumes with probable vascular crowding but no definite acute cardiopulmonary disease. Dictated by: Anibal Valle M.D. on 06/13/2016 at 18:59 Approved by: Anibal Valle M.D. on 06/13/2016 at 19:00 12-lead ECG Rate 118 Sinus tachycardia normal axis no signs of ST changes Assessment & Plan Patient is a 51 y.o. F with past medica history of MS, neurogenic bladder with indwelling catheter, left renal atrophy, recurrent UTI with multiple drug resistance. Patient admitted to hospital for treatment of sepsis, likely source of infection urinary from indwelling catheter. Hospital Day 2 1. Sepsis, acute, present on admission - Surgical criteria met with Patient tachycardic and tachypneic on admission HR 116, RR 24, leukocytosis 25,000 - Likely source of infection urinary tract from indwelling catheter secondary to neurogenic bladder due to multiple sclerosis - Patient last admitted to hospital September 2015 for SAMANTHA, obstructive uropathy neurogenic bladder and urinary tract infection requiring CCU admit, urine cultures positive for Citrobacter and Enterobacter (resistance to nitrofurantoin ) both resistant to Augmentin, cefazolin, cefuroxime. - Continue IVF NS @ 125 mls/hr - Continue Zosyn renal dosing per pharmacy for 7 days - discontinue Vancomycin given UTI with prior culture results noted above - Continue to monitor renal function estimated creatine clearance at admission > 40 - UA with culture ordered and pending - Blood cultures ordered, pending - Procalcitonin 1.07 at admission and trended down - Lactic acid 1.6 at admission and trended - discontinue telemetry - Velez cath in place replaced by EGD - Continue to monitor I/O - ID consulted appreciated recommendations in time 2.urinary tract infection, acute, present on admission - from indwelling catheter which was replaced in the ED - continue treatment as above #1 3.Acute on chronic kidney disease, present on admission - Cr at admission 1.73 improved from baseline - Continue to monitor - Repeat BMP in AM - Consider nephrology consult if patient renal function worsens below baseline 4.Dehydration, acute, present on admission - Continue fluid resuscitation as above #1 5. Hypotension, mild, acute, present on admission - Continue fluid resuscitation as above #1 - Improving with fluids 6. Neurogenic bladder, chronic, present on admission - Likely secondary to multiple sclerosis - Continue treatment as above #1 7. Multiple sclerosis, present on admission, chronic - Patient on treatment with Tecfidera 240 mg daily, Hold medication one more day monitoring infection - This medication has been shown to leukocytopenia and decrease body's ability to properly mount immunologic response to fight off severe infection - Consider Neurology consult 8. Hypertension, present on admission, chronic - Hold Home meds until BP improves CODE STATUS: LIMITED INTERVENTIONS NO INTUBATION, NO MECHANICAL VENTILATION DVT prophylaxis: Sub Q heparin Disposition: Patient likely to remain hospitalized for one more day until culture results come back given prior history of resistant organisms to guarantee monitoring and proper antibiotic selection. Patient has home health nurse already. No further barriers expected to discharge GI Prophylaxis: H2 meet VTE Prophylaxis: Sub-Q Heparin (Unfractionated) Resuscitation Status: Limited Interventions (No intubation, No mechanical ventilation) Limited Interventions: Cardioversion/Defibrillation, BiPAP, Medications and IV Fluid Attending Statement The patient was seen and examined together with Dr. Golden on 06/15/2016 and I agree with the history, exam and plan as outlined in the note above. . Sander Golden DO Jun 15, 2016 08:06 Jamie Sierra MD Jun 16, 2016 19:32
[2016-06-15] MEDS: DIMETHYL FUMARATE 240 MG PO SCH (21:13)
[2016-06-15] MEDS ORDERED: Vancomycin Serum Trough XX ONE (21:30)
--- NOTE | 2016-06-16 00:09 | CONS ---
[address] [address] CONSULTATION REPORT PATIENT: BENJIE KAUFMAN : 1965 MR#: [id number] ADMIT: 06/13/2016 JOB ID: [id number] DATE OF SERVICE: 06/15/2016 REASON FOR FOLLOWUP: Polymicrobial urinary tract infection. I thank Dr. Sierra for this timely consult. HISTORY OF PRESENT ILLNESS: The patient is a most unfortunate 51-year-old woman with a 12 year history of multiple sclerosis which has reduced her mobility greatly and left her with a neurogenic bladder. She has an indwelling Velez with left renal atrophy and a history of multiple recurrent urinary tract infections. She has her Velez changed once a month, and two weeks ago was her most recent change. Unfortunately, after that change, there was leaking and she developed a candidal intertrigo in her groin, and for that reason, she was seen in urgent care and the Velez was again replaced. She then did okay until about three days prior to admission when she developed altered mental status with encephalopathy, hypersomnolence, confusion and chills. These symptoms led her family to bring her to the hospital, where she was admitted two days ago with possible sepsis. She was started empirically on broad-spectrum antibiotics which include Zosyn. She was started on vanco and Zosyn and improved considerably. At this point, the patient's mental status has basically returned to something close to normal, though she is still quite weak. Ordinarily, she can made it about 10 steps with a walker, but at this point she is still too weak to do that. She remains on Zosyn and on this, the beginning of her third hospital day, ID consultation is requested regarding possible discharge meds. The patient and her were interviewed. The patient reports she is getting back toward normal except for the weakness in her lower extremities, and hopes to get that somewhat better before she goes home. At this point, she no longer has any fevers and chills, she is no longer confused, and she is back to her normal mental status. She has no sore throat. No significant cough. No chest pain or shortness of breath. PAST MEDICAL HISTORY: 1. Multiple sclerosis. 2. Neurogenic bladder. 3. History of recurrent urinary tract infections. 4. Chronic renal insufficiency. 5. Atrophic left kidney. SOCIAL HISTORY: The patient lives at home with her and caregivers. She is a nonsmoker and nondrinker. 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 FAMILY HISTORY: The had tuberculosis in the late 1970s and was treated. That is before they were . The patient herself has no other family history of TB. REVIEW OF SYSTEMS: Was done. The patient reports no ongoing fevers, chills or headaches. She has no sore throat. No significant cough, shortness of breath, chest pain, nausea, vomiting or diarrhea. She has not yet regained her ability to walk. She has a neurogenic bladder and a chronic Velez is in place. She denies having any history of decubitus ulcers. Remainder of the review of systems was negative. PHYSICAL EXAMINATION: Reveals an afebrile woman. She was febrile to 37.9 when she came in. She has been afebrile since, now 37.2, pulse 94, respiratory rate 22, blood pressure 137/94. She is saturating well on room air. She is a propped up with pillows in bed. Her head is without trauma. Eyes without conjunctivitis or scleral icterus. Oral cavity is benign. No pharyngitis is seen. The neck is without obvious adenopathy or JVD. Lungs are reasonably clear. Cardiac tones: Regular rate and rhythm without murmur. Abdomen is soft and nontender without organomegaly or ascites. She has a Velez catheter in place. Her extremities are without evidence of edema or cellulitis. There is no skin breakdown noted on the patient's backside according to the nursing staff, the patient and her . I did not reposition her to examine this part of the body. Heels are without ulceration and the extremities are well perfused. Neurologically, the patient is quite weak in her lower extremities, which is one of the very limiting here, and she has the Velez catheter. LABORATORIES: Include white count 25,000 when she came in two days ago. It is now down to 7000, completely normal. Creatinine 1.15, down from 1.5 when she came in. LFTs normal except ALT 44. Procalcitonin is 0.5, down from 1.07, so it has fallen by half. Urinalysis is packed with white cells, also a large number of red cells seen. The blood cultures are negative. The urine culture is confusing in that at least three different microorganisms are growing. The Internal Medicine team has asked the micro lab to ferret out the three organisms and do susceptibilities. In reviewing her charts, previously the patient has had many outpatient urine cultures positive for Enterobacter, as well as E. coli, which have been by and large susceptible to quinolones. She also was admitted here in 2016 with what sounded like urosepsis, but the urine culture was actually negative, so we do not have any evidence for multi-drug resistant organisms at this point. IMAGING: During this admission includes a chest x-ray which shows low lung volumes but no clear-cut infiltrate. IMPRESSION: This is an unfortunate 51-year-old woman with multiple sclerosis, multiple neurologic deficits including lower extremity weakness and neurogenic bladder. She is admitted with what sounds like a complicated urinary tract infection with sepsis producing encephalopathy and profound leukocytosis. Unfortunately, our blood cultures are negative and our urine cultures are mixed in this patient with a chronic indwelling Velez. In the past, all of her isolates we can find, both in and outpatient, have been susceptible to quinolones. RECOMMENDATIONS: 1. Will continue with Zosyn overnight. 2. We await additional data from micro lab in the morning. 3. Hopefully, will be able to send the patient home with an oral quinolone to finish her therapy, but that will depend on what we get from the micro lab. This case discussed in detail with the patient and her .
[2016-06-16] MEDS: Sodium Chloride LOK Flush 10 mL Syringe IVFLUSH SCH ×3 (00:30→16:30)
[2016-06-16 03:58] LABS: BASOPHILS % (AUTO) 0.9 % (0-3); EOSINOPHILS % (AUTO) 2.5 % (0-5); MONOCYTES % (AUTO) 14.8 % (4-12); Mean Corpuscular Hemoglobin 28.9 pg (27.0-35.0); Mean Corpuscular Volume 89.5 fL (81-100); NEUTROPHILS % (AUTO) 72.7 % (40-74); Platelet Count 206 bil/L (150-400)
[2016-06-16 04:40] VITALS: BP 122/78; PULSE 96; RESP 24; O2SAT 95
[2016-06-16] MEDS: 0.9% Sodium Chloride 1,000 ML IV SCH ×3 (05:28→22:22)
[2016-06-16] MEDS: Piperacillin-Tazo 3.375 Gm Inj 3.375 GM in Dextrose 5% Minibag Plus 50 ML IV SCH ×3 (05:28→22:22)
[2016-06-16] MEDS: Heparin 5,000 Unit/mL Inj SUBQ SCH ×3 (05:45→22:28)
--- NOTE | 2016-06-16 06:36 | NUR ---
No Tele/IV Pt off telemetry, Room air, NS @ 125, Changed IV tubing 0500 06/16/16 A&O x3 weak , moves all extremities, using call light appropriately,
[2016-06-16] MEDS: DIMETHYL FUMARATE 240 MG PO SCH ×2 (09:00→20:11)
[2016-06-16 09:02] VITALS: BP 128/83; PULSE 87; RESP 16; O2SAT 95
[2016-06-16 12:01] VITALS: BP 105/70; PULSE 99; RESP 16; O2SAT 95
--- NOTE | 2016-06-16 12:50 | PROG NOTE ---
[address] [address] PROGRESS NOTE PATIENT: BENJIE KAUFMAN : 1965 MR#: [id number] ADMIT: 06/13/2016 JOB ID: [id number] DATE: 06/16/2016 REASON FOR FOLLOWUP: Complicated urinary tract infection with encephalopathy. INTERVAL HISTORY: Overnight, the patient reports she is improved. She denies fevers, chills, or sweats. She has no pulmonary complaints. She specifically denies abdominal pain. No nausea, vomiting, diarrhea, and she has a good appetite. She still has a Velez catheter in place, as is always the case. She notes she has a bit of a rash on her left arm which she attributes to being laid on her left arm up for sustained period. PHYSICAL EXAMINATION: Reveals a comfortable-appearing woman. She has been afebrile since her admission now almost three days ago. Pulse 87, respiratory rate 16, blood pressure 128/83. She is saturating well on room air. Examination of the oral cavity is unremarkable. Lungs fairly clear bilaterally. Cardiac tones without new murmur. Abdomen is nontender, including completely nontender in the right upper quadrant. She has a Velez catheter in place. She has an erythematous exanthem over her left distal forearm which may in fact have been due to pressure. LABORATORIES: Include a white count which is dropping rapidly from 25,000 four days ago to 6000 today. Basically normal diff at this point. Creatinine is 1.17 and steadily improving. LFTs are actually going the other way. Her AST is now increased to 69. Her ALT is increased to 73, and her alk phos is increased to 254. All of these started off at normal. Her procalcitonin is going the right way, however. It was 1.07 on admission and is now down to 0.2. Micro studies include a mixed urine culture. The urine actually grew three separate isolates, and so the micro lab was not enthusiastic about working it up, but one member the medicine team asked them to, and what they found is two separate species of E. coli and Klebsiella. Susceptibilities will not be available until tomorrow. Last night when we saw this consult, we reviewed the [facility] records and found that she has grown a variety of enteric gram-negative rods from her urine in the past and that all that had been tested in the past were sensitive to quinolones. Note that she is also SULFA allergic. Her chest radiograph done on admission showed no infiltrate. IMPRESSION: This patient was quite ill when she came in with complicated urinary tract infection, encephalopathy, and profound leukocytosis. She is now improved tremendously after four days or so of Zosyn and might reasonably be considered for discharge. The Zosyn is probably overly broad at this point, but we can probably just leave it in place, as she will likely go within the next 24 hours. For home antibiotics, I would consider oral Cipro. If she is sent home tomorrow, the results of the micro studies will be available, and I would just double check to make sure all the organisms are sensitive to quinolones. If on the other hand the plan is to send her home today, I think that is completely reasonable, as it is very likely the organisms would be susceptible. The only other concern I have with this patient is her rising LFTs which do not make a lot of sense. Her LFTs are rising in a cholestatic pattern. I wonder if this could be due to medication. There is little reason to think she has any right upper quadrant structural pathology, as she has no tenderness, a good appetite, and no nausea and vomiting. RECOMMENDATIONS: 1. The patient could be discharged today on oral Cipro to complete a 10-day course, which would mean she would go for six more days. 2. If not sent home today, she could go tomorrow, presumably with oral quinolones, but one would need to check the susceptibilities of the three organisms which are now growing in the micro lab to make sure that Cipro would be a reasonable choice. 3. The patient should have her LFTs rechecked at some point, and then reasonably in near future either as an inpatient or outpatient to make sure they are not continuing to climb. If they are continuing to climb, of course she will need a right upper quadrant ultrasound, but I do not think that is urgent today.
--- NOTE | 2016-06-16 14:07 | NUR ---
Evaluation completed. Please go to "Notes" then click on "Assessments and Notes" (bottom left corner of screen). Then select appropriate discipline tab on top of screen.
[2016-06-16 16:42] VITALS: BP 113/75; PULSE 87; RESP 20; O2SAT 98
--- NOTE | 2016-06-16 17:02 | NUR ---
Activity She has tolerated be turned in bed every 2 hours today. Was able with the help of Physical Therapy to sit at the edge of the bed before receiving a two person assist to lay back down and get situated in bed. Care continues.
--- NOTE | 2016-06-16 18:29 | PCM.PNMED ---
Subjective Date of Service Jun 16, 2016 Subjective overnight: No acute events overnight Today: Patient states that she is doing well today. She has no complaints and denies any fever or chills. The patient states that her will be in the hospital after his work. Exam Vital Signs Vital Sign - Last Date Time Temp Pulse Resp B/P Pulse Ox O2 Delivery O2 Flow Rate FiO2 06/16/16 04:40 36.8 96 24 122/78 95 Room Air Intake and Output 06/15/16 06/15/16 06/16/16 Cumulative From/Thru 15:00 23:00 07:00 06/13/16 17:09 - 06/16/16 06:19 Intake Total 870 ml 3289 ml 57305 ml Output Total 2075 ml 1300 ml 9425 ml Balance -1205 ml 1989 ml 1343 ml Intake Oral 870 ml 200 ml 2080 ml IV Total 3089 ml 8688 ml Output Urine Total 2075 ml 1300 ml 9425 ml # Voids 1 # Bowel Movements 0 0 0 Exam General: Alert, Oriented and Cooperative, No Acute Distress Head: Normocephalic, atraumatic. External ears normal. Mild hirsutism noted around chin Eyes: PERRLA, EOMI. Anicteric sclerae. Mouth: Mouth Normal, Mucous Membranes moist Neck: Neck supple with full range of motion. No JVD, skin tenting present Chest & Lungs: Clear to auscultation bilaterally with no crackles, wheezes, or rhonchi. Decreased air movement at bases Cardiovascular: Tachycardic with regular rhythm, Normal S1, Normal S2, No Murmurs/Rubs/Gallops Abdomen: Non-tender, Non-distended, No masses, Normoactive bowel tones, Soft Musculoskeletal: Limited Range of Motion at base line, patient able to move arms and legs but generalized weakness most notably in the lower extremities, No CVA tenderness Extremities: No cyanosis/clubbing/edema bilaterally Neurological: Grossly Neurologically Intact, slurred speech at baseline, appropriately follows commands Psych: Normal mood and elevated but not labile affect Lab and Diagnostics Result Diagram: 06/16/1634606/16/16346 X-Rays, CTs and MRIs CHEST X-RAY IMPRESSION: 1. Low lung volumes with probable vascular crowding but no definite acute cardiopulmonary disease. Dictated by: Anibal Valle M.D. on 06/13/2016 at 18:59 Approved by: Anibal Valle M.D. on 06/13/2016 at 19:00 12-lead ECG Rate 118 Sinus tachycardia normal axis no signs of ST changes Assessment & Plan Patient is a 51 y.o. F with past medica history of MS, neurogenic bladder with indwelling catheter, left renal atrophy, recurrent UTI with multiple drug resistance. Patient admitted to hospital for treatment of sepsis, likely source of infection urinary from indwelling catheter. Hospital Day 3 1. Sepsis, acute, present on admission - Surgical criteria met with Patient tachycardic and tachypneic on admission HR 116, RR 24, leukocytosis 25,000 - Likely source of infection urinary tract from indwelling catheter secondary to neurogenic bladder due to multiple sclerosis - Patient last admitted to hospital September 2015 for SAMANTHA, obstructive uropathy neurogenic bladder and urinary tract infection requiring CCU admit, urine cultures positive for Citrobacter and Enterobacter (resistance to nitrofurantoin ) both resistant to Augmentin, cefazolin, cefuroxime. - Continue IVF NS @ 125 mls/hr - Continue Zosyn renal dosing per pharmacy for 7 days - discontinue Vancomycin given UTI with prior culture results noted above - Continue to monitor renal function estimated creatine clearance at admission > 40 - UA with culture ordered and pending - Blood cultures ordered, pending - Procalcitonin 1.07 at admission and trended down - Lactic acid 1.6 at admission and trended - discontinue telemetry - Velez cath in place replaced by EGD - Continue to monitor I/O - ID consulted appreciated recommendations in time 2.urinary tract infection, acute, present on admission - from indwelling catheter which was replaced in the ED - continue treatment as above #1 3.Acute on chronic kidney disease, present on admission - Cr at admission 1.73 improved from baseline - Continue to monitor - Repeat CMP in AM 4. Transaminitis, not present on admission, under evaluation - Continue to monitor - Consider right upper quadrant ultrasound if transaminitis persists 5. Hypotension, mild, acute, present on admission - Continue fluid resuscitation as above #1 - Improving with fluids 6. Neurogenic bladder, chronic, present on admission - Likely secondary to multiple sclerosis - Continue treatment as above #1 7. Multiple sclerosis, present on admission, chronic - Patient on treatment with Tecfidera 240 mg daily, Hold medication one more day monitoring infection - This medication has been shown to leukocytopenia and decrease body's ability to properly mount immunologic response to fight off severe infection - Consider Neurology consult 8. Hypertension, present on admission, chronic - Hold Home meds until BP improves 9.Dehydration, acute, present on admission - Continue fluid resuscitation as above #1 CODE STATUS: LIMITED INTERVENTIONS NO INTUBATION, NO MECHANICAL VENTILATION DVT prophylaxis: Sub Q heparin Disposition: Patient likely to remain hospitalized for one more day until culture results come back given prior history of resistant organisms to guarantee monitoring and proper antibiotic selection. Patient has home health nurse already. No further barriers expected to discharge Pain Evaluation: Adequate Pain Control GI Prophylaxis: H2 meet VTE Prophylaxis: Sub-Q Heparin (Unfractionated) Resuscitation Status: Limited Interventions (No intubation, No mechanical ventilation) Limited Interventions: Cardioversion/Defibrillation, BiPAP, Medications and IV Fluid Attending Statement The patient was seen and examined together with Dr. Golden on 06/16/2016 and I agree with the history, exam and plan as outlined in the note above. . Sander Golden DO Jun 16, 2016 07:37 Jamie Sierra MD Jun 18, 2016 18:33
[2016-06-16 20:05] VITALS: BP 123/82; PULSE 88; RESP 16; O2SAT 96
[2016-06-17] MEDS: Sodium Chloride LOK Flush 10 mL Syringe IVFLUSH SCH ×3 (00:30→13:38)
--- NOTE | 2016-06-17 01:15 | NUR ---
Transfer from [facility] RM 2005 to [facility] RM 3014 Pt was transferred in her bed from room 2005 to room 3014 with all pt's belongings and the soft-touch call-light button and a single IV pump at approximately 0115. Pt has NS@125ml/hr and Zosyn@12.5ml/hr running at the time of transfer. Pt on RA with SpO2 >92%. Pt is AOx3, and DAVIS but very weak and still not at baseline. Pt's will be notified of the room change in the AM per pt request.
--- NOTE | 2016-06-17 01:18 | NUR ---
Transfer to [facility] 3014 Pt arrived to room at around 0115. Alert and oriented. Arrived in PCC bed. Abx infusing. No pain currently.
[2016-06-17] MEDS: 0.9% Sodium Chloride 1,000 ML IV SCH ×3 (05:50→20:23)
[2016-06-17] MEDS: Piperacillin-Tazo 3.375 Gm Inj 3.375 GM in Dextrose 5% Minibag Plus 50 ML IV SCH ×3 (05:51→20:23)
[2016-06-17] MEDS: Heparin 5,000 Unit/mL Inj SUBQ SCH ×3 (05:55→20:24)
[2016-06-17 06:38] LABS: BASOPHILS % (AUTO) 1.3 % (0-3); MONOCYTES % (AUTO) 15.6 % (4-12); Mean Corpuscular Hemoglobin 28.6 pg (27.0-35.0); NEUTROPHILS % (AUTO) 66.4 % (40-74); Platelet Count 256 bil/L (150-400)
--- NOTE | 2016-06-17 06:40 | NUR ---
Attempt to Contact Regarding RM Change Attempted to contact pt's at 0638 this AM per the request of the pt to notify him of the pt's room change from RM 2004 to RM 3014. The home phone rang multiple times with no answer and no way to leave a voice message. Pt's still needs to be contacted and notified of the room change. His name is Valentin and the home number is [phone].
[2016-06-17 06:47] VITALS: BP 124/80; PULSE 83; RESP 16; O2SAT 92
[2016-06-17] MEDS: DIMETHYL FUMARATE 240 MG PO SCH ×2 (08:03→20:24)
--- NOTE | 2016-06-17 09:05 | NUR ---
Verbal consent to sign GEORGIE with pt. YOVANI Rm
--- NOTE | 2016-06-17 10:34 | NUR ---
Social Work-readiness for discharge: Data:EMR reviewed. Pt is on day 4 of hospitalization for sepsis per H&P. Pt is not medically stable anticipate 1-2 more days. PT worked with pt and are recommending SNF. Pt is a 2 person assist and not able to sit at the edge of the bed, pt normally able to independently transfer to w/c. SW met with pt, SW role explained. SW explained PT recommend,SNF choice list provided. Pt is agreeable to a referral to [facility]. SW also explained that pt's insurance will have to authorize SNF placement also. SW provided access in [email or web address] and faxed PASRR and facesheet to facility. SW called pt's Valentin [phone] and [phone] to discuss discharge planning, SW role explained. SW explained that pt's had moved to new floor and provided him with room number. SW explained recommendation for SNF. is hopeful for pt to return home, but is agreeable to referral to [facility]. ZAIN updated MD. Phone number and plan written on white board in room. PASRR and paperwork in the chart. SW will continue to follow. Assessment:Pt who would benefit from SNF. Plan: Referral has been made to [facility]. Insurance authorization will need to be obtained. PASRR and paperwork in the chart. SW will continue to follow. YOVANI Rm
--- NOTE | 2016-06-17 10:38 | NUR ---
SNF choice list provided. YOVANI Rm
[2016-06-17 13:00] VITALS: BP 126/74; PULSE 81; RESP 16; O2SAT 96
--- NOTE | 2016-06-17 17:53 | NUR ---
Activity/BM/family Pt remains on Q2 hour turning schedule to prevent any skin breakdown. She is tolerating this well and compliant. Velez remains patent, draining pale yellow urine. Pt has not had a BM since admission, when this was discussed she mentioned to MD that she "did not feel comfortable" having a BM while here in the hospital. Plan is to facilitate assisting her with a BM this evening when he comes in to visit per pt's request. was updated of pt's room change by social media manager this morning and he was in to visit. Bed in lowest, locked position and call light in reach.
--- NOTE | 2016-06-17 18:25 | PCM.PNMED ---
Subjective Date of Service Jun 17, 2016 Subjective Patient is a 51 y.o. F with past medica history of MS, neurogenic bladder with indwelling catheter, left renal atrophy, recurrent UTI with multiple drug resistance. Patient admitted to hospital for treatment of sepsis, likely source of infection urinary from indwelling catheter. Hospital Day 4 Patient reports feeling well today, she is having no discomfort in the suprapubic area or with her Velez catheter. She is emotional during our discussion but also reasonable. She has not had a bowel movement in multiple days upon further discussion she related that she does not feel comfortable having a BM here. She states that at home her helps her. Need for an attempt when is here next was discussed with patient. She is agreed. Exam Vital Signs Vital Sign - Last Date Time Temp Pulse Resp B/P Pulse Ox O2 Delivery O2 Flow Rate FiO2 06/17/16 06:47 36.8 83 16 124/80 92 Room Air Intake and Output 06/16/16 06/16/16 06/17/16 Cumulative From/Thru 15:00 23:00 07:00 06/13/16 17:09 - 06/17/16 06:47 Intake Total 1918 ml 1627 ml 95389 ml Output Total 2350 ml 2250 ml 10601 ml Balance -432 ml -623 ml 288 ml Intake Oral 540 ml 150 ml 2770 ml IV Total 1378 ml 1477 ml 35045 ml Output Urine Total 2350 ml 2250 ml 91528 ml # Voids 1 # Bowel Movements 0 Exam General: Alert, Oriented and Cooperative, No Acute Distress Head: Normocephalic, atraumatic. External ears normal. Mild hirsutism noted with chin hair Eyes: PERRLA, EOMI. Anicteric sclerae. Mouth: Mouth Normal, Mucous Membranes moist Neck: Neck supple with full range of motion. No JVD Chest & Lungs: Clear to auscultation bilaterally with no crackles, wheezes, or rhonchi. Decreased air movement at bases Cardiovascular: regular rate and rhythm, No Murmurs/Rubs/Gallops Abdomen: Non-tender, Non-distended, No masses, Normoactive bowel tones, Soft Musculoskeletal: Limited Range of Motion at base line, patient able to move arms and legs but generalized weakness most notably in the lower extremities Extremities: No cyanosis/clubbing/edema bilaterally Neurological: Grossly Neurologically Intact, slurred speech at baseline, appropriately follows commands Psych: Normal mood and elevated but not labile affect Lab and Diagnostics Result Diagram: 06/17/1660206/17/16602 X-Rays, CTs and MRIs CHEST X-RAY IMPRESSION: 1. Low lung volumes with probable vascular crowding but no definite acute cardiopulmonary disease. Dictated by: Anibal Valle M.D. on 06/13/2016 at 18:59 Approved by: Anibal Valle M.D. on 06/13/2016 at 19:00 12-lead ECG Rate 118 Sinus tachycardia normal axis no signs of ST changes Assessment & Plan Patient is a 51 y.o. F with past medica history of MS, neurogenic bladder with indwelling catheter, left renal atrophy, recurrent UTI with multiple drug resistance. Patient admitted to hospital for treatment of sepsis, likely source of infection urinary from indwelling catheter. Hospital Day 4 1. Sepsis, acute, present on admission -Sepsis criteria met with Patient tachycardic and tachypneic on admission HR 116 , RR 24, leukocytosis 25,000 - Likely source of infection urinary tract from indwelling catheter secondary to neurogenic bladder due to multiple sclerosis - Patient last admitted to hospital September 2015 for SAMANTHA, obstructive uropathy neurogenic bladder and urinary tract infection requiring CCU admit, urine cultures positive for Citrobacter and Enterobacter (resistance to nitrofurantoin ) both resistant to Augmentin, cefazolin, cefuroxime. - Continue IVF NS @ 125 mls/hr - Continue Zosyn renal dosing per pharmacy for 7 days - Patient can discharge with ciprofloxacin when appropriate for a 10 day course of antibiotics - discontinue Vancomycin given UTI with prior culture results noted above - Continue to monitor renal function estimated creatine clearance at admission > 40 - UA with culture shows Klebsiella pneumoniae and mixed urogenital aline - Blood cultures ordered, pending - Procalcitonin 1.07 at admission and trended down - Lactic acid 1.6 at admission and trended - discontinue telemetry - Velez cath in place replaced by EGD - Continue to monitor I/O - ID consulted appreciated recommendations in time 2.urinary tract infection, acute, present on admission - from indwelling catheter which was replaced in the ED - continue treatment as above #1 3. Acute metabolic encephalopathy due to Klebsiella UTI, present on admission, resolved - Treated as above 4. Acute on chronic kidney disease, present on admission - Cr at admission 1.73 improved from baseline - Continue to monitor - Repeat CMP in AM 5. Transaminitis, not present on admission, under evaluation - Continue to monitor - Consider right upper quadrant ultrasound if transaminitis persists 6. Neurogenic bladder, chronic, present on admission - Likely secondary to multiple sclerosis - Continue treatment as above #1 7. Multiple sclerosis, present on admission, chronic - Patient on treatment with Tecfidera 240 mg daily, Hold medication one more day monitoring infection - This medication has been shown to leukocytopenia and decrease body's ability to properly mount immunologic response to fight off severe infection - Consider Neurology consult 8. Hypertension, present on admission, chronic - Hold Home meds until BP improves 9.Dehydration, acute, present on admission - Continue fluid resuscitation as above #1 10. Hypotension, mild, acute, present on admission, resolved - Continue fluid resuscitation as above #1 - Improving with fluids CODE STATUS: LIMITED INTERVENTIONS NO INTUBATION, NO MECHANICAL VENTILATION DVT prophylaxis: Sub Q heparin Disposition: Patient likely to remain hospitalized until Sunday as physical therapy is recommending long-term and patient's insurance is not available until Sunday. Patient has home health nurse already. No further barriers expected to discharge GI Prophylaxis: H2 meet VTE Prophylaxis: Sub-Q Heparin (Unfractionated) Resuscitation Status: Limited Interventions (No intubation, No mechanical ventilation) Limited Interventions: Cardioversion/Defibrillation, BiPAP, Medications and IV Fluid Attending Statement The patient was seen and examined together with Dr. Lewis on 06/17/2016 and I agree with the history, exam and plan as outlined in the note above. Eli Lewis DO Jun 17, 2016 07:16 Valente Wasserman MD Jun 18, 2016 11:23
[2016-06-17 20:11] VITALS: BP 114/74; PULSE 83; RESP 14; O2SAT 96
[2016-06-18] MEDS: Sodium Chloride LOK Flush 10 mL Syringe IVFLUSH SCH ×3 (00:04→14:12)
[2016-06-18] MEDS: 0.9% Sodium Chloride 1,000 ML IV SCH (04:41)
[2016-06-18] MEDS: Piperacillin-Tazo 3.375 Gm Inj 3.375 GM in Dextrose 5% Minibag Plus 50 ML IV SCH (04:41)
[2016-06-18 04:45] VITALS: BP 132/81; PULSE 83; RESP 16; O2SAT 94
[2016-06-18] MEDS: Heparin 5,000 Unit/mL Inj SUBQ SCH ×3 (04:50→21:31)
[2016-06-18 07:27] LABS: BASOPHILS % (AUTO) 0.9 % (0-3); EOSINOPHILS % (AUTO) 4.2 % (0-5); MONOCYTES % (AUTO) 13.4 % (4-12); Mean Corpuscular Volume 87.3 fL (81-100); NEUTROPHILS % (AUTO) 66.1 % (40-74); Platelet Count 267 bil/L (150-400)
[2016-06-18] MEDS: DIMETHYL FUMARATE 240 MG PO SCH ×2 (08:39→19:41)
--- NOTE | 2016-06-18 11:28 | PCM.PNMED ---
Subjective Date of Service Jun 18, 2016 Subjective Pt has no complaints or concerns at this time. Pt denies any fever, nausea, vomiting, chills, abdominal pain, or jaundice. Exam Vital Signs Vital Sign - Last Date Time Temp Pulse Resp B/P Pulse Ox O2 Delivery O2 Flow Rate FiO2 06/18/16 04:45 37.0 83 16 132/81 94 Room Air Intake and Output 06/17/16 06/17/16 06/18/16 Cumulative From/Thru 15:00 23:00 07:00 06/13/16 17:09 - 06/18/16 06:27 Intake Total 653 ml 1544 ml 200 ml 84632 ml Output Total 2150 ml 1975 ml 57525 ml Balance 653 ml -606 ml -1775 ml -1440 ml Intake Oral 720 ml 200 ml 3690 ml IV Total 653 ml 824 ml 62098 ml Output Urine Total 2150 ml 1975 ml 78607 ml # Voids 1 # Bowel Movements 1 1 Exam GENERAL: NAD, Pt laying in bed comfortably HEENT: AT/NC, PERRLA, EOMI, Mucus Membranes are moist CARDIAC: RRR; No M/R/G PULM: CTAB; No wheezes or rhonchi bilaterally ABD: Soft, Nontender, Nondistended, Positive bowel sounds in all quadrants, No Hepatosplenomegaly appreciated EXT: No C/C/E; No calf tenderness bilaterally SKIN: Warm, Dry, [place], and Intact NEURO: Alert and oriented x3; Following all commands PSYCH: Normal mood and affect IVs and Medications Medications Reviewed: Medications were reviewed in detail Lab and Diagnostics Result Diagram: 06/18/1646 06/18/1646 X-Rays, CTs and MRIs CHEST X-RAY IMPRESSION: 1. Low lung volumes with probable vascular crowding but no definite acute cardiopulmonary disease. Dictated by: Anibal Valle M.D. on 06/13/2016 at 18:59 Approved by: Anibal Valle M.D. on 06/13/2016 at 19:00 12-lead ECG Rate 118 Sinus tachycardia normal axis no signs of ST changes Assessment & Plan Patient is a 51 y.o. F with past medica history of MS, neurogenic bladder with indwelling catheter, left renal atrophy, recurrent UTI with multiple drug resistance. Patient admitted to hospital for treatment of sepsis, likely source of infection urinary from indwelling catheter. Hospital Day 4 1. Sepsis, acute, present on admission - Resolved - Sepsis criteria met with Patient tachycardic and tachypneic on admission HR 116, RR 24, leukocytosis 25,000 - Likely source of infection urinary tract from indwelling catheter secondary to neurogenic bladder due to multiple sclerosis - Patient last admitted to hospital September 2015 for SAMANTHA, obstructive uropathy neurogenic bladder and urinary tract infection requiring CCU admit, urine cultures positive for Citrobacter and Enterobacter (resistance to nitrofurantoin ) both resistant to Augmentin, cefazolin, cefuroxime. - Stop IV fluids now - Pt completed Zosyn at renal dosing per pharmacy for 7 days - Patient can discharge with ciprofloxacin when appropriate for a 10 day course of antibiotics - discontinue Vancomycin given UTI with prior culture results noted above - Continue to monitor renal function estimated creatine clearance at admission > 40 - UA with culture shows Klebsiella pneumoniae and mixed urogenital alien - Blood cultures ordered, pending - Procalcitonin 1.07 at admission and trended down - Lactic acid 1.6 at admission and trended - discontinue telemetry - Velez cath in place replaced by EGD - Continue to monitor I/O - ID consulted appreciated recommendations in time 2.urinary tract infection, acute, present on admission - from indwelling catheter which was replaced in the ED - Start PO quinolones, per ID 3. Acute metabolic encephalopathy due to Klebsiella UTI, present on admission, resolved - Treated as above 4. Acute on chronic kidney disease, present on admission - Cr at admission 1.73 improved from baseline - Continue to monitor - Repeat CMP in AM 5. Transaminitis, not present on admission, under evaluation - Continue to monitor - Will order a RUQ US now 6. Neurogenic bladder, chronic, present on admission - Likely secondary to multiple sclerosis - Continue treatment as above #1 7. Multiple sclerosis, present on admission, chronic - Patient on treatment with Tecfidera 240 mg daily, Hold medication one more day monitoring infection - This medication has been shown to leukocytopenia and decrease body's ability to properly mount immunologic response to fight off severe infection - Consider Neurology consult 8. Hypertension, present on admission, chronic - Hold Home meds until BP improves 9.Dehydration, acute, present on admission - Continue fluid resuscitation as above #1 10. Hypotension, mild, acute, present on admission, resolved - Continue fluid resuscitation as above #1 - Improving with fluids CODE STATUS: LIMITED INTERVENTIONS NO INTUBATION, NO MECHANICAL VENTILATION DVT prophylaxis: Sub Q heparin Disposition: Patient likely to remain hospitalized until Sunday as physical therapy is recommending intermediate and patient's insurance is not available until Sunday. Patient has home health nurse already. No further barriers expected to discharge GI Prophylaxis: H2 meet VTE Prophylaxis: Sub-Q Heparin (Unfractionated) VTE Mechanical Devices: Venous Foot Pump Resuscitation Status: Limited Interventions (No intubation, No mechanical ventilation) Limited Interventions: Cardioversion/Defibrillation, BiPAP, Medications and IV Fluid Valente Wasserman MD Jun 18, 2016 11:28
--- NOTE | 2016-06-18 11:29 | NUR ---
[facility] can accept when ready with Dr. Millan to follow. [facility] to start authorization tomorrow with insurance. YOVANI Rm
[2016-06-18 14:30] VITALS: BP 124/81; PULSE 90; RESP 16; O2SAT 95
--- NOTE | 2016-06-18 15:37 | DRSVH ---
PROCEDURE: US ABDOMEN ([id number]) INDICATIONS: Elevated liver enzymes TECHNIQUE: Real-time scanning was performed of the abdominal and retroperitoneal organs, with image documentatio n. COMPARISON: [facility], CT, CT KUB, 10/14/2015, 14:30. FINDINGS: Liver: Liver is normal in size and homogeneous in echotexture. Gallbladder: Within normal limits Biliary ducts: Intrahepatic bile ducts are non-dilated. Extrahepatic bile duct caliber measures 4.0 mm. Normal is 6-7 mm or less in diameter, or 10 mm or less post-cholecystectomy. Pancreas: Not well-seen. Spleen: Spleen is normal in size and homogeneous in echotexture. Kidneys: Left kidney is not well-seen. Right kidney measures 11.4 cm. No hydronephrosis. Aorta: Visualized aorta is normal in caliber at less than 3 cm. Iliacs: Proximal common iliac arteries are normal in caliber at less than 2.5 cm. IVC: Intrahepatic inferior vena cava is patent. Miscellaneous: No free abdominal fluid. IMPRESSION: No acute process. Dictated by: Kerri Lynn M.D. on 06/18/2016 at 15:34 Approved by: Kerri Lynn M.D. on 06/18/2016 at 15:35
--- NOTE | 2016-06-18 17:58 | NUR ---
Activity Pt has remained on bedrest this shift, turned Q2 hours routinely which pt is compliant with. She denies any pain/discomfort at this time. Family in earlier to visit. Bed in lowest, locked position and call light in reach.
[2016-06-18 20:31] VITALS: BP 135/72; PULSE 74; RESP 18; O2SAT 94
[2016-06-19 05:03] VITALS: BP 117/74; PULSE 85; RESP 16; O2SAT 96
[2016-06-19] MEDS: Heparin 5,000 Unit/mL Inj SUBQ SCH ×3 (06:00→20:52)
[2016-06-19] MEDS: Sodium Chloride LOK Flush 10 mL Syringe IVFLUSH SCH ×3 (06:01→15:42)
--- NOTE | 2016-06-19 06:34 | NUR ---
sleep patient has slept well this shift. turned every 2-4 hours. denies discomfort. mccullough catheter with pale urine draining to gravity care ongoing
[2016-06-19] MEDS: DIMETHYL FUMARATE 240 MG PO SCH ×2 (07:48→20:54)
--- NOTE | 2016-06-19 11:10 | NUR ---
Social Work-readiness for discharge: Data:EMR Reviewed. Pt is on day 6 of hospitalization for sepsis per H&P. PT continues to recommend SNF, pt is a 2 person max assist, unable to transfer herself. ZAIN spoke with Dunia at [facility] who confirms that she has submitted the authorization this morning and will let SW know when this is in place. Paperwork and PASRR In the chart. SW will continue to follow. Assessment:Pt who would benefit from SNF. Plan:[facility] has accepted pt. Authorization has been submitted. Paperwork and PASRR In the chart. SW will continue to follow. YOVANI Rm
--- NOTE | 2016-06-19 13:02 | PCM.DIMED ---
Eli Lewis DO 06/19/16 1302: Discharge Instructions Date of Service Jun 19, 2016 Dates of Hospitalization Jun 13, 2016 at 19:54 Discharge Diagnosis Discharge Diagnosis 1. Sepsis, resolved 2. Urinary tract infection 3. Acute metabolic encephalopathy due to Klebsiella UTI 4. Acute on chronic kidney disease 5. Transaminitis 6. Neurogenic bladder 7. Multiple sclerosis 8. Hypertension 9. Dehydration, resolved Medication Instructions Taking her medications as previously prescribed. Take ciprofloxacin through June 22. Diet Heart Healthy Activity Other (physical therapy and rehabilitation) Call your provider Fever or Chills, Shortness of breath, Chest pain, Vomitting, Excessive diarrhea Patient Instructions He will had another urinary tract infection. Continue to take antibiotics as prescribed. Follow-up plan Follow-up in 2 weeks with your primary care provider. Follow-up Provider: Laurel Benitez PA-C Follow-up with PCP in: 2 weeks Oren Coughlin MD 06/19/16 1544: Discharge Instructions Attending's Statement The patient was seen and examined together with on 06/19/2016 and I agree with the discharge instructions as outlined above. Eli Lewis DO Jun 19, 2016 13:02 Oren Coughlin MD Jun 19, 2016 15:44
[2016-06-19] MEDS ORDERED: MELA5TAB14 PO (13:04)
[2016-06-19] MEDS ORDERED: CIPR-231 PO (13:04)
[2016-06-19 13:32] VITALS: BP 115/78; PULSE 88; RESP 17; O2SAT 95
--- NOTE | 2016-06-19 17:40 | PCM.PNMED ---
Subjective Date of Service Jun 19, 2016 Subjective Patient is a 51 y.o. F with past medica history of MS, neurogenic bladder with indwelling catheter, left renal atrophy, recurrent UTI with multiple drug resistance. Patient admitted to hospital for treatment of sepsis, likely source of infection urinary from indwelling catheter. Hospital Day 6 Patient no acute events overnight, this morning she is feeling well. She has no complaints or concerns. She has no suprapubic pain, no nausea or vomiting. She continues to feel generally weak and needed assistance for transfers. Exam Vital Signs Vital Sign - Last Date Time Temp Pulse Resp B/P Pulse Ox O2 Delivery O2 Flow Rate FiO2 06/19/16 13:32 36.3 88 17 115/78 95 Room Air Intake and Output 06/18/16 06/18/16 06/19/16 Cumulative From/Thru 15:00 23:00 07:00 06/13/16 17:09 - 06/19/16 06:07 Intake Total 2396 ml 1240 ml 100 ml 93406 ml Output Total 2200 ml 2075 ml 98211 ml Balance 2396 ml -960 ml -1975 ml -1979 ml Intake Oral 1240 ml 100 ml 5030 ml IV Total 2396 ml 23373 ml Output Urine Total 2200 ml 2075 ml 75377 ml # Voids 1 # Bowel Movements 1 Exam General: Alert, Oriented and Cooperative, No Acute Distress Head: Normocephalic, atraumatic. External ears normal. Mild hirsutism noted with chin hair Eyes: PERRLA, EOMI. Anicteric sclerae. Mouth: Mouth Normal, Mucous Membranes moist Neck: Neck supple with full range of motion. No JVD Chest & Lungs: Clear to auscultation bilaterally with no crackles, wheezes, or rhonchi. Decreased air movement at bases Cardiovascular: regular rate and rhythm, No Murmurs/Rubs/Gallops Abdomen: Non-tender, Non-distended, No masses, Normoactive bowel tones, Soft Musculoskeletal: Limited Range of Motion at base line, patient able to move arms and legs but generalized weakness most notably in the lower extremities Extremities: No cyanosis/clubbing/edema bilaterally Neurological: Grossly Neurologically Intact, slurred speech at baseline, appropriately follows commands Psych: Normal mood and elevated but not labile affect Lab and Diagnostics Result Diagram: 06/18/1664506/18/16645 X-Rays, CTs and MRIs CHEST X-RAY IMPRESSION: 1. Low lung volumes with probable vascular crowding but no definite acute cardiopulmonary disease. Dictated by: Anibal Valle M.D. on 06/13/2016 at 18:59 Approved by: Anibal Valle M.D. on 06/13/2016 at 19:00 12-lead ECG Rate 118 Sinus tachycardia normal axis no signs of ST changes Assessment & Plan Patient is a 51 y.o. F with past medica history of MS, neurogenic bladder with indwelling catheter, left renal atrophy, recurrent UTI with multiple drug resistance. Patient admitted to hospital for treatment of sepsis, likely source of infection urinary from indwelling catheter. Hospital Day 6 1. Sepsis, acute, present on admission,resolved - Resolved - Sepsis criteria met with Patient tachycardic and tachypneic on admission HR 116, RR 24, leukocytosis 25,000 - Likely source of infection urinary tract from indwelling catheter secondary to neurogenic bladder due to multiple sclerosis - Patient last admitted to hospital September 2015 for SAMANTHA, obstructive uropathy neurogenic bladder and urinary tract infection requiring CCU admit, urine cultures positive for Citrobacter and Enterobacter (resistance to nitrofurantoin ) both resistant to Augmentin, cefazolin, cefuroxime. - Pt completed Zosyn at renal dosing per pharmacy for 7 days - Patient on ciprofloxacin and can discharge with this when appropriate for a 10 day course of antibiotics - Continue to monitor renal function estimated creatine clearance at admission > 40 - UA with culture shows Klebsiella pneumoniae and mixed urogenital aline - Blood cultures show no growth after 5 days - Procalcitonin 1.07 at admission and trended down - Lactic acid 1.6 at admission and trended - Velez cath in place replaced by ED - Continue to monitor I/O 2. Urinary tract infection, acute, present on admission - from indwelling catheter which was replaced in the ED - Start PO quinolones, per ID 3. Acute metabolic encephalopathy due to Klebsiella UTI, present on admission, resolved - Treated as above 4. Acute on chronic kidney disease, present on admission - Cr at admission 1.73 improved from baseline - Continue to monitor 5. Transaminitis, not present on admission, under evaluation - Continue to monitor - RUQ US shows Liver is normal in size and homogeneous in echotexture, with no acute abdominal process. - Recommend outpatient follow-up with recheck of alkaline phosphatase at 1 week after discharge. 6. Neurogenic bladder, chronic, present on admission - Likely secondary to multiple sclerosis - Continue treatment as above #1 7. Multiple sclerosis, present on admission, chronic - Patient on treatment with Tecfidera 240 mg daily, Hold medication, resume on discharge - This medication has been shown to cause leukocytopenia and decrease body's ability to properly mount immunologic response to fight off severe infection 8. Hypertension, present on admission, chronic - Hold Home meds, patient currently normotensive 9. Hypotension, mild, acute, present on admission, resolved - Improved with fluids CODE STATUS: LIMITED INTERVENTIONS NO INTUBATION, NO MECHANICAL VENTILATION DVT prophylaxis: Sub Q heparin Disposition: Patient likely to remain hospitalized until tomorrow when insurance approves placement at [facility] where she has been accepted for rehabilitation services. Pain Evaluation: Adequate Pain Control GI Prophylaxis: H2 meet VTE Prophylaxis: Sub-Q Heparin (Unfractionated) VTE Mechanical Devices: Venous Foot Pump Resuscitation Status: Limited Interventions (No intubation, No mechanical ventilation) Limited Interventions: Cardioversion/Defibrillation, BiPAP, Medications and IV Fluid Attending Statement The patient was seen and examined together with Dr. Lewis on 06/19/2016 and I agree with the history, exam and plan as outlined in the note above. Eli Lewis DO Jun 19, 2016 17:40 Oren Coughlin MD Jun 19, 2016 20:46 Eli Lewis DO Jun 19, 2016 17:40
--- NOTE | 2016-06-19 19:09 | PROG NOTE ---
[address] [address] PROGRESS NOTE PATIENT: BENJIE KAUFMAN : 1965 MR#: [id number] ADMIT: 06/13/2016 JOB ID: [id number] DATE: 06/19/2016 REASON FOR FOLLOWUP: Complicated urinary tract infection in a multiple sclerosis patient with indwelling Velez which is primarily due to Klebsiella. INTERVAL HISTORY: Over the weekend, the patient finished up the intravenous part of her therapy with Zosyn and is now switched to Cipro. The plan is to continue Cipro for about three more days. She is tolerating her therapy well and is free of fevers, chills, or sweats. PHYSICAL EXAMINATION: Reveals an afebrile woman. Temp 36.3, blood pressure 115/78, pulse 78, respiratory rate 17. Her lungs are clear. Cardiac tones without new murmur. Abdomen negative. Velez catheter is chronically in place draining clear yellow urine. LABORATORIES: Include white count stable at 6700, she does have 13% monos, creatinine stable at 1.08. Alk phos is up a bit at 286, otherwise LFTs stable. Procalcitonin down to 0.16 two days ago, not repeated since that time. Micro from the original blood culture grew Klebsiella pneumonia as well as some mixed organisms. That Klebsiella was, fortunately, exquisitely sensitive to Cipro. Also note that the patient had an ultrasound yesterday which showed no acute process and was ordered to evaluate her elevated liver functions. IMPRESSION: This patient is doing very well. She has completed the intravenous portion of her therapy for her complicated urinary tract infection and is going to be discharged probably in the next day or so on Cipro to go through June 23. RECOMMENDATIONS: 1. The patient will continue on Cipro through June 23. 2. She can be discharged at any time from an Infectious Disease point of view. Infectious Disease will go ahead and sign off. Thank you very much for this consult.
[2016-06-19 20:54] VITALS: BP 117/77; PULSE 92; RESP 16; O2SAT 92
[2016-06-20] MEDS: Sodium Chloride LOK Flush 10 mL Syringe IVFLUSH SCH ×2 (00:30→08:01)
--- NOTE | 2016-06-20 03:19 | NUR ---
activity Pt had family visit for the evening, alert and oriented x4. Pt is Q2 turns, mccullough is patent draining yellow urine. No complaints of pain or discomfort, taking oral antibiotics, no s/s of adverse reactions. Left room with call light button on chest with easy access.
[2016-06-20 04:51] VITALS: BP 120/74; PULSE 84; RESP 16; O2SAT 93
[2016-06-20] MEDS: Heparin 5,000 Unit/mL Inj SUBQ SCH (05:07)
[2016-06-20 06:17] LABS: BASOPHILS % (AUTO) 0.9 % (0-3); EOSINOPHILS % (AUTO) 3.9 % (0-5); MONOCYTES % (AUTO) 10.8 % (4-12); Mean Corpuscular Hemoglobin 29.2 pg (27.0-35.0); Mean Corpuscular Volume 87.6 fL (81-100); NEUTROPHILS % (AUTO) 68.3 % (40-74); Platelet Count 337 bil/L (150-400)
[2016-06-20] MEDS: DIMETHYL FUMARATE 240 MG PO SCH (08:01)
--- NOTE | 2016-06-20 08:18 | NUR ---
SW received a call from [facility] this morning who states they have obtained [employer] Authorization for pt to come to SNF. YOVANI Rm
--- NOTE | 2016-06-20 10:08 | PCM.DIMED ---
Eli Lewis DO 06/20/16 1008: Discharge Instructions Date of Service Jun 20, 2016 Dates of Hospitalization Jun 13, 2016 at 19:54 Discharge Diagnosis Discharge Diagnosis 1. Sepsis, resolved 2. Urinary tract infection 3. Acute metabolic encephalopathy due to Klebsiella UTI 4. Acute on chronic kidney disease 5. Transaminitis 6. Neurogenic bladder 7. Multiple sclerosis 8. Hypertension 9. Dehydration, resolved Medication Instructions Taking her medications as previously prescribed. Take ciprofloxacin through June 22. Diet Heart Healthy Activity Other (physical therapy and rehabilitation) Call your provider Fever or Chills, Shortness of breath, Chest pain, Vomitting, Excessive diarrhea Patient Instructions He will had another urinary tract infection. Continue to take antibiotics as prescribed. Follow-up plan Follow-up with Dr. Millan at [facility]. Follow-up Provider: Laurel Benitez PA-C Follow-up with PCP in: 2 weeks (After discharge from [facility]) Provider: Chivo Millan DO Follow-up in: 1 week Oren Coughlin MD 06/20/16 1926: Discharge Instructions Attending's Statement The patient was seen and examined together with Dr. Lewis on 06/20/2016 and I agree with the discharge instructions outlined in the note above. Eli Lewis DO Jun 20, 2016 10:08 Oren Coughlin MD Jun 20, 2016 19:26
[2016-06-20] MEDS ORDERED: CIPR-231 PO (10:10)
--- NOTE | 2016-06-20 10:45 | NUR ---
Arranged BLS transport for noon via [facility] patient is going to [facility]
--- NOTE | 2016-06-20 11:07 | NUR ---
Social Work-discharge: Data:EMR reviewed. Pt is on day 7 of hospitalization for sepsis per H&P. Pt is medically stable for discharge today. PT continues to recommend SNF, pt is a 2 plus person max assist. ZAIN received an update from [facility] that they have obtained insurance authorization and ready to accept pt today. has completed orders, ZAIN faxed orders and created packet. UR specialist and ZAIN reviewed chart and feel like pt meets criteria to go BLS. UR specialist arranged BLS transport for 1200. ZAIN updated pt at bedside she is agreeable to plan. ZAIN informed pt that she cannot guarantee that insurance will cover the cost of transport, pt agreeable to proceed. ZAIN called pt's at home, no answer, no voicemail. ZAIN called Valentin's cell phone and left a message informing him of discharge time. ZAIN updated pt at message had been left with . RN,NAYELY,pt/family, and [facility] all updated and agreeable to plan. Assessment:Pt who would benefit from SNF. Plan:Pt to discharge to [facility] today via BLS at 1200. Insurance authorization has been obtained. RN,UC,pt/family, and [facility] all updated and agreeable to plan. YOVANI Rm
--- NOTE | 2016-06-20 11:14 | NUR ---
Discharge Patient report given to RN at [facility]. Patient notified of discharge. Patient belongings packed and ready for discharge. Patient awaiting S transportation for discharge to [facility].
--- NOTE | 2016-06-20 19:52 | PCM.DC.MED ---
Discharge Summary Date of Service Jun 20, 2016 Dates of Hospitalization Date of Hospital Admission Jun 13, 2016 at 19:54 Date of Discharge: Jun 20, 2016 Providers: Admitting Physician: Maykel Irizarry MD Primary Care Physician: Laurel Benitez PA-C Attending Physician: Maykel Irizarry MD Diagnosis at Time of Discharge Diagnosis at Time of Discharge 1. Sepsis, resolved 2. Urinary tract infection 3. Acute metabolic encephalopathy due to Klebsiella UTI 4. Acute on chronic kidney disease 5. Transaminitis 6. Neurogenic bladder 7. Multiple sclerosis 8. Hypertension 9. Dehydration, resolved Consultations Pharmacology for vancomycin dosing Infectious disease Procedures XRay, CTs & MRIs CHEST X-RAY IMPRESSION: 1. Low lung volumes with probable vascular crowding but no definite acute cardiopulmonary disease. Dictated by: Anibal Valle M.D. on 06/13/2016 at 18:59 Approved by: Anibal Valle M.D. on 06/13/2016 at 19:00 ECG 12 Lead Rate 118 Sinus tachycardia normal axis no signs of ST changes Other Diagnostics PROCEDURE: US ABDOMEN ([id number]) INDICATIONS: Elevated liver enzymes TECHNIQUE: Real-time scanning was performed of the abdominal and retroperitoneal organs, with image documentation. COMPARISON: [facility], CT, CT KUB, 10/14/2015, 14:30. FINDINGS: Liver: Liver is normal in size and homogeneous in echotexture. Gallbladder: Within normal limits Biliary ducts: Intrahepatic bile ducts are non-dilated. Extrahepatic bile duct caliber measures 4.0 mm. Normal is 6-7 mm or less in diameter, or 10 mm or less post-cholecystectomy. Pancreas: Not well-seen. Spleen: Spleen is normal in size and homogeneous in echotexture. Kidneys: Left kidney is not well-seen. Right kidney measures 11.4 cm. No hydronephrosis. Aorta: Visualized aorta is normal in caliber at less than 3 cm. Iliacs: Proximal common iliac arteries are normal in caliber at less than 2.5 cm. IVC: Intrahepatic inferior vena cava is patent. Miscellaneous: No free abdominal fluid. IMPRESSION: No acute process. Dictated by: Kerri Lynn M.D. on 06/18/2016 at 15:34 Brief History History of present illness on admission by Dr. Henry: Patient is a 51 y.o. F with past medica history of MS, neurogenic bladder with indwelling catheter, left renal atrophy, recurrent UTI with multiple drug resistance. Patient last admitted to hospital September 2015 for SAMANTHA, obstructive uropathy, urosepsis requiring CCU admit, cultures positive for Citrobacter and Enterobacter (resistance to nitrofurantoin) both resistant to Augmentin, cefazolin, cefuroxime. Patient presented to ED this evening with 24 hours history of worsening subjective fever, weakness, chills, decreased appetite. Family reports patient has been more confused, decreased urination, change in urine color, stated that symptoms are similar to prior admission although they feel like they brought patient into the hospital earlier this time before symptoms became worse. Family denies numbness, facial droop, abdominal pain, constipation, pus or blood in urine, use of systemic steroids for MS. Patient denies headache, syncope, chest pain, chest pressure, shortness of breath, discomfort with Velez insertion, neck stiffness, change in vision. In Ed patient given fluids, once dose of Vancomycin dosing per pharmacy, Zosyn. Hospital Course Patient is a 51 y.o. F with past medica history of MS, neurogenic bladder with indwelling catheter, left renal atrophy, recurrent UTI with multiple drug resistance. Patient admitted to hospital for treatment of sepsis, likely source of infection urinary from indwelling catheter. 1. Sepsis, acute, present on admission,resolved - Sepsis criteria met with Patient tachycardic and tachypneic on admission HR 116, RR 24, leukocytosis 25,000 - Likely source of infection urinary tract from indwelling catheter secondary to neurogenic bladder due to multiple sclerosis - Patient last admitted to hospital September 2015 for SAMANTHA, obstructive uropathy neurogenic bladder and urinary tract infection requiring CCU admit, urine cultures positive for Citrobacter and Enterobacter (resistance to nitrofurantoin ) both resistant to Augmentin, cefazolin, cefuroxime. - This admission urine culture positive for Klebsiella pneumoniae resistant only to ampicillin - Pt completed Zosyn at renal dosing per pharmacy for 7 days - Patient on ciprofloxacin and can discharge with this when appropriate for a 10 day course of antibiotics - monitored renal function which continued to improve, estimated creatine clearance at admission >40 - UA with culture shows Klebsiella pneumoniae and mixed urogenital aline - Blood cultures show no growth after 5 days - Procalcitonin 1.07 at admission and trended down - Lactic acid 1.6 at admission and trended, max 2.1 - Velez cath in place; replaced by ED 2. Urinary tract infection, acute, present on admission - From indwelling catheter which was replaced in the ED - Start PO quinolones, per ID 3. Acute metabolic encephalopathy due to Klebsiella UTI, present on admission, resolved - Treated as above 4. Transaminitis, not present on admission, under evaluation - Continue to monitor - RUQ US shows Liver is normal in size and homogeneous in echotexture, with no acute abdominal process. - Recommend outpatient follow-up with recheck of alkaline phosphatase at 1 week after discharge. 5. Acute on chronic kidney disease, present on admission - Cr at admission 1.73 improved from baseline 6. Neurogenic bladder, chronic, present on admission - Likely secondary to multiple sclerosis - Continue treatment as above #1 7. Multiple sclerosis, present on admission, chronic - Patient on treatment with Tecfidera 240 mg daily, Hold medication, resume on discharge - This medication has been shown to cause leukocytopenia and decrease body's ability to properly mount immunologic response to fight off severe infection - Patient has generalized weakness will be discharged to [facility] facility for rehabilitation 8. Hypertension, present on admission, chronic - Hold Home meds, patient currently normotensive 9. Hypotension, mild, acute, present on admission, resolved - Improved with fluids condition on discharge stable CODE STATUS: LIMITED INTERVENTIONS NO INTUBATION, NO MECHANICAL VENTILATION Exam Vital Signs (Last) Date Time Temp Pulse Resp B/P Pulse Ox O2 Delivery O2 Flow Rate FiO2 06/20/16 04:51 37.1 84 16 120/74 93 Room Air Exam General: Alert, Oriented and Cooperative, No Acute Distress Head: Normocephalic, atraumatic. External ears normal. Mild hirsutism noted with chin hair, recently shaved Eyes: PERRLA, EOMI. Anicteric sclerae. Mouth: Mouth Normal, Mucous Membranes moist Neck: Neck supple with full range of motion. No JVD Chest & Lungs: Clear to auscultation bilaterally with no crackles, wheezes, or rhonchi. Decreased air movement at bases Cardiovascular: regular rate and rhythm, No Murmurs/Rubs/Gallops Abdomen: Non-tender, Non-distended, No masses, Normoactive bowel tones, Soft Musculoskeletal: Limited Range of Motion at base line, patient able to move arms and legs but generalized weakness most notably in the lower extremities Extremities: No cyanosis/clubbing/edema bilaterally Neurological: Grossly Neurologically Intact, slurred speech at baseline, appropriately follows commands Psych: Normal mood and elevated but not labile affect Test 06/13/16 18:04 06/13/16 22:00 06/13/16 23:00 06/14/16 02:20 Hemoglobin A1c 5.2% (4.8-5.6) Phosphorus Level 2.3mg/dL (2.5-4.9) Magnesium Level 1.8mg/dL (1.6-2.6) Troponin T < 0.010ug/L (0.0-0.011) Hold Godwin Top Tube Received (Received) Prothrombin Time 11.4sec (8.1-12.5) Prothromb Time International Ratio 1.06ratio Activated Partial Thromboplast Time 22.0sec (22.8-33.0) Urine Color Straw (YELLOW) Urine Appearance Cloudy (CLEAR,HAZY) Urine pH 7.5 (5.0-8.0) Urine Specific [place] 1.020 (1.003-1.035) Urine Protein 100mg/dL (NEG,TRACE) Urine Glucose (UA) Negativemg/dL (NEGATIVE) Urine Ketones Tracemg/dL (NEGATIVE) Urine Occult Blood Large (NEGATIVE) Urine Nitrite Negative (NEGATIVE) Urine Bilirubin Negative (NEGATIVE) Urine Urobilinogen Normalmg/dL (NORMAL) Urine Leukocyte Esterase Large (NEGATIVE) Urine RBC >50/hpf (0-2) Urine WBC Packed/hpf (0-5) Urine Epithelial Cells Many/hpf (NONE-MOD) Urine Crystals None seen (NONE SEEN) Urine Bacteria Many/hpf (NONE-FEW) Urine Hyaline Casts Occasional/lpf (NONE) Urine Granular Casts None seen (NONE SEEN) Urine Waxy Casts None seen (NONE SEEN) Urine Red Blood Cell Casts None seen (NONE SEEN) Urine White Blood Cell Casts None seen (NONE SEEN) Urine Mucus None seen (None Seen) Urine Trichomonas None seen (NONE SEEN) Urine Yeast None (NONE SEEN) Urine Culture Reflexed Indicated Lactic Acid Level 1.2mmol/L (0.4-2.0) Test 06/17/16 06:03 06/20/16 05:50 Procalcitonin 0.16ng/mL (0.00-0.08) White Blood Count 8.0th/mm3 (3.8-10.1) Red Blood Count 4.21mil/mm3 (3.90-5.20) Hemoglobin 12.3g/dL (12.0-15.6) Hematocrit 36.9% (35.0-46.0) Mean Corpuscular Volume 87.6fL (81-100) Mean Corpuscular Hemoglobin 29.2pg (27.0-35.0) Mean Corpuscular Hemoglobin Concent 33.3% (32.0-37.0) Red Cell Distribution Width 13.8% (12.3-15.4) Platelet Count 337bil/L (150-400) Neutrophils (%) (Auto) 68.3% (40-74) Lymphocytes (%) (Auto) 15.1% (14-46) Monocytes (%) (Auto) 10.8% (4-12) Eosinophils (%) (Auto) 3.9% (0-5) Basophils (%) (Auto) 0.9% (0-3) Sodium Level 139mEq/L (134-144) Potassium Level 3.9mEq/L (3.5-5.2) Chloride Level 103mEq/L (97-108) Carbon Dioxide Level 20mmol/L (18-29) Blood Urea Nitrogen 11mg/dL (6-24) Creatinine 1.01mg/dL (0.57-1.00) Estimat Glomerular Filtration Rate 82mL/min (>59) Glucose Level 96mg/dL (60-99) Calcium Level 9.1mg/dL (8.5-10.1) Total Bilirubin 0.3mg/dL (0.0-1.2) Aspartate Amino Transf (AST/SGOT) 45U/L (0-50) Alanine Aminotransferase (ALT/SGPT) 74U/L (0-32) Alkaline Phosphatase 280U/L (25-150) Total Protein 6.6g/dL (6.4-8.4) Albumin 3.0g/dL (3.4-5.0) Microbiology Results Blood cultures negative Urine culture with Klebsiella pneumoniae and mixed urogenital aline MRSA nasal screen negative Discharge Medications Discharge Medications Ciprofloxacin (Cipro) 500 Mg Tablet 500 MG PO BID Prescribed by: MEENA WOO, Cranberry Extract/Vit C (Azo Cranberry Softgel) 1 Each Capsule 1 EACH PO DAILY ( Reported) Dimethyl Fumarate (Tecfidera) 240 Mg Capsule 240 MG PO BID (Reported) Lisinopril (Lisinopril) 2.5 Mg Tablet 2.5 MG PO DAILY (Reported) Multivitamin (Multivitamins) 1 Each Capsule 1 EACH PO DAILY (Reported) Nystatin (Nystatin) 60 Applic/15 Gm Cream 1 APPLIC TOP BID (Reported) Ubidecarenone/Vit E Acetate (Co Q-10 100 mg Softgel) 1 Each Capsule 1 EACH PO DAILY (Reported) As needed Acetaminophen (Acetaminophen) 325 Mg Capsule 650 MG PO q4 hours PRN PRN For Pain (Reported) Melatonin (Melatonin) 5 Mg Tablet 5 MG PO DAILYWD PRN PRN Insomnia Prescribed by: MEENA WOO, Additional med instructions Take your medications as previously prescribed. Take ciprofloxacin through June 22. Followup Plan Disposition: Patient discharged to [facility] with Dr. Millan accepting. Follow-up plan Follow-up with Dr. Millan at [facility]. Discharge Diet: Heart Healthy Discharge Activity: Other (physical therapy and rehabilitation) Patient Instructions He will had another urinary tract infection. Continue to take antibiotics as prescribed. Follow-up Provider: Laurel Benitez PA-C Follow-up with PCP in: 2 weeks (After discharge from [facility]) Provider: Chivo Millan DO Follow-up in: 1 week Time spent 35 minutes coordinating discharge Attending Statement The patient was seen and examined independently on 06/20/2016 and case discussed with Dr. Woo , I agree with the discharge summary as outlined in the note above. copies to: Chivo Millan Erika R DO Jun 20, 2016 19:52 Oren Coughlin MD Jun 21, 2016 06:44
== END 2016-06-20 12:06 | DRG 698 ==
LOC: SED 17:08 → PCC 19:54 → MPC 06-17 01:07
PROVIDERS: ADMIT Hospitalist; ATTEND Hospitalist
DX: T83.511A Infection and inflammatory reaction due to indwelling urethral catheter, initial encounter (principal); A41.9 Sepsis, unspecified organism; G93.41 Metabolic encephalopathy; N17.9 Acute kidney failure, unspecified; G35 Multiple sclerosis; N39.0 Urinary tract infection, site not specified; N18.9 Chronic kidney disease, unspecified; I12.9 Hypertensive chronic kidney disease with stage 1 through stage 4 chronic kidney disease, or unspecified chronic kidney disease; N13.9 Obstructive and reflux uropathy, unspecified; E86.0 Dehydration; N31.9 Neuromuscular dysfunction of bladder, unspecified; B96.1 Klebsiella pneumoniae [K. pneumoniae] as the cause of diseases classified elsewhere; R74.0 Nonspecific elevation of levels of transaminase and lactic acid dehydrogenase [LDH]; Z16.11 Resistance to penicillins